=== PATIENT | female | born 1935 | race Caucasian/White ===

== ENCOUNTER 2017-07-20 10:31 | Inpatient (IN) | payer MEDICARE ==
[2017-07-20 11:09] LABS: #Lymphocytes 0.9 thou/uL (1.20-3.40); #Monocytes 0.6 thou/uL (0.11-0.59); #Neutrophils 13.9 thou/uL (1.40-6.50); %Eosinophils 0.1 % (0.0-10.0); %Monocytes 3.7 % (0.0-10.0); %Neutrophils 90.2 % (42.0-75.0); Mean Corpuscular HGB CONC 31.7 g/dL (32.0-36.0); Mean Corpuscular Hemoglobin 30.3 pg (27.0-31.0); Mean Corpuscular Volume 95.6 fl (81.0-99.0); Mean Platelet Volume 7.7 fL (7.4-10.4); Platelet Count 304 thou/uL (130-400); Red Blood Cell (RBC) Count 5.62 mill/uL (4.20-5.40); White Blood Cell (WBC) Count 15.4 thou/uL (4.8-10.8)
[2017-07-20 11:25] LABS: ALT (SGPT) 13 U/L (8-55); AST (SGOT) 29 U/L (5-34); Albumin 4.7 g/dL (3.4-4.8); Alkaline Phosphatase 94 U/L (40-150); Anion Gap 19 mmol/L (10-20); BUN (Urea Nitrogen) 18 mg/dL (9.8-20.1); Bilirubin, Total 1.1 mg/dL (0.2-1.2); Calc. Creatinine Clearance 0 mL/min (70-130); Calcium 10.8 mg/dL (7.8-10.44); Carbon Dioxide 24 mmol/L (23-31); Chloride 99 mmol/L (98-107); Estimated GFR-MDRD 38; Globulin 4.1 g/dL (2.4-3.5); Glucose 176 mg/dL (83-110); Potassium 4.2 mmol/L (3.5-5.1); Protein, Total 8.8 g/dL (6.0-8.3); Sodium 138 mmol/L (136-145)
[2017-07-20] MEDS ORDERED: ISOVUE-370 76%-LOCM 1 ML ONE (12:20)
[2017-07-20] MEDS ORDERED: Ondansetron HCl/PF 4 MG/2 ML Vial ONE (13:10)
--- NOTE | 2017-07-20 13:46 | CT ---
CT ABDOMEN WITH CONTRAST CT PELVIS WITH CONTRAST: Date: 07/20/17 HISTORY: Abdominal pain. Possible obstruction. Nausea, vomiting, and constipation. Symptoms x24 hours. COMPARISON: None. TECHNIQUE: Abdomen and pelvic CT are performed with IV contrast. Enteric contrast was not administered. Coronal reformatted images are submitted for interpretation. FINDINGS: ABDOMEN CT: Atelectasis in the right lower lobe. Heart size normal. No significant pericardial fluid. The descend ing thoracic aorta and abdominal aorta have an overall normal caliber. No periaortic fat stranding. S ymmetric attenuation of psoas muscles. Gallbladder is unremarkable. Intra and extrahepatic portal vei n is patent. Liver, spleen, pancreas, and adrenal glands have appropriate enhancement. Symmetric enhancement of the kidneys. Bilaterally, no obstructive uropathy. 2.5 cm cyst in the left k idney. No gastrohepatic, retrocrural, or periportal lymphadenopathy. No mesenteric mass, lymphadenopathy, free air, or free fluid. Large hiatal hernia with the cardia and proximal to mid body of the stomach extending through the def ect. There is an air fluid level. The herniated stomach, in the posterior mediastinum, measures 13.6 x 7.8 cm. The gastroesophageal junction cannot be assessed on this exam. There are multiple distended fluid-filled loops of small bowel. The transition segment appears to be in the left hemiabdomen and likely involves distal jejunal loops. Mid to distal ileal loops are decompressed. Ileocecal junction is decompressed. Normal caliber appendix. Decompressed colon is identified. No evidence of colonic ob struction. PELVIC CT: Urinary bladder is unremarkable. Surgically absent uterus. No pelvic mass, lymphadenopathy, free air, or free fluid. Sigmoid colon diverticulosis, without evidence of diverticulitis. There is nonspecifi c small amount of free fluid in the pelvis. Scoliotic curvature of the lumbar spine is demonstrated. Previous vertebroplasty change in the lower thoracic spine is noted. IMPRESSION: 1. Large hiatal hernia. 2. High grade small bowel obstruction is suspected. The transition segment appears to be in the left hemiabdomen. Results of study discussed with Dr. Talbert on 07/20/17 at 1259 hours. CODE CR. POS: [facility]
[2017-07-20] MEDS ORDERED: Piperacillin/Tazobactam 4.5 GM, Admixture Fee 1 EACH in Sodium Chloride 0.9% 100 ML IVPB SCH (14:45)
[2017-07-20] MEDS ORDERED: Nystatin 500,000 UNITS/5 ML UDCUP PO SCH ×2 (15:30→21:00)
[2017-07-20] MEDS ORDERED: Piperacillin/Tazobactam 4.5 GM in Sodium Chloride 0.9% 100 ML IVPB SCH ×2 (15:30→20:00)
[2017-07-20 16:33] LABS: Bilirubin Negative (Negative); Blood, Urine Trace (Negative); Clarity CLEAR (Clear); Glucose, Urine (Dipstick) Negative (Negative); Leukocyte Negative (Negative); Nitrite Negative (Negative); Protein, Urine (Dipstick) 30 mg/dL (Neg-Trace); Urobilinogen 0.2 mg/dL (0.2-1.0)
[2017-07-20 16:36] LABS: Bacteria/HPF None Seen HPF (None Seen); Pathc Cast-AUWi Flag 1.62 (0-2.49)
[2017-07-20 16:38] LABS: Specific Gravity, Urine Greater than 1.060 (1.002-1.036)
[2017-07-20 16:50] LABS: Hyaline Casts/LPF 0-3 HYALINE CAST LPF (0-3 Hyaline); Renal Epithelial None Seen HPF (0-3); Transitional Epithelial NONE SEEN HPF (0-3)
[2017-07-20 16:59] LABS: Lactic Acid 1.9 mmol/L (0.5-2.2)
[2017-07-20] MEDS ORDERED: Pantoprazole 40 MG VIAL IVP SCH (17:30)
[2017-07-20] MEDS ORDERED: Lactated Ringer's 1,000 ML IV SCH (17:30)
[2017-07-20] MEDS ORDERED: Chloraseptic Spray 180 ml Bottle PO PRN (17:40)
[2017-07-20] MEDS ORDERED: Ondansetron ODT 4 MG TAB SL PRN (19:12)
[2017-07-20] MEDS ORDERED: Ondansetron HCl/PF 4 MG/2 ML Vial IVP PRN (19:12)
[2017-07-20] MEDS ORDERED: Morphine 5 MG/ML SYRINGE SLOW IVP PRN ×2 (19:27→19:28)
--- NOTE | 2017-07-20 20:19 | CON ---
DATE OF CONSULTATION: 07/20/2017 REQUESTING PHYSICIAN: Dr. Talbert. HISTORY OF PRESENT ILLNESS: This is an 82-year-old woman who presented to Emergency Department with insidious-onset epigastric abdominal pain associated with multiple episodes of nausea and initially nonbilious emesis. Subsequently , patient had bilious emesis. She was evaluated by her primary care physician earlier this morning and was referred to the Emergency Department. Patient reports passing flatus this morning; however, she has not had any bowel movement over the last 2 days. She took some magnesium citrate with hopes of losing bowel movement; however, she was unable to retain this due to multiple bouts of emesis. Patient denies any fevers or chills. She denies any chest pain, dyspnea or syncope. She does, however, recall that over the last several months, she develops shortness of breath after eating. She denies any hematochezia or melena. She denies any unexplained weight loss. PAST MEDICAL HISTORY: She denies any significant past medical history. SURGICAL HISTORY: Pertinent for hysterectomy and hemorrhoidectomy . SOCIAL HISTORY: Patient denies any cigarette smoking or illicit drug abuse; however, she admits to having two shots of [place] nightly. PREHOSPITAL MEDICATION: Includes Advil which she takes occasionally for headaches and pain. ALLERGIES: Patient denies any known drug allergies. FAMILY HISTORY: Noncontributory for this patient's age. REVIEW OF SYSTEMS: Ten-point review of systems is essentially unremarkable except for as stated in past medical history and chief complaint. PHYSICAL EXAMINATION: GENERAL: This reveals an 82-year-old normally-developed woman who is otherwise coherent and interactive and appears stated age. Patient is alert and oriented x3, appears to be in no acute distress at the time of my evaluation. HEENT: Reveals normocephalic and atraumatic. Pupils are equal, round, and reactive to light and accommodation. Extraocular muscles are intact bilaterally. No sclerae icterus is present. HEART: Reveals regular rate and rhythm, no murmurs or gallops auscultated. LUNGS: Clear to auscultation bilaterally. Breathing is regular and unlabored. ABDOMEN: Soft, nontender and nondistended. Bowel sounds in all four quadrants appear normoactive. Liver and spleen are nonpalpable below costal margins. EXTREMITIES: Reveals 2+ radial and pedal pulses bilaterally. No ankle edema is present. NEUROLOGICAL: Examination reveals no focal deficits present. PERTINENT LABORATORY DATA: Today includes CBC with 15,400 white blood cells, hemoglobin 17.0, hematocrit is 53.7, platelet count is 304,000. Metabolic profile: Sodium 138, potassium is 4.2, chloride is 99, bicarbonate is 24, BUN 18, creatinine is 1.34, glucose is 176. Initial lactic acid was 2.7 and on repeat was 1.9. Total bilirubin is 1.1, AST and ALT normal at 29 and 13 respectively. Serum lipase is normal at 12. I have personally reviewed the CT scan of the abdomen and pelvis which reveals a large hiatal hernia with multiple distended loops of small bowel with a transition segment which appears to be in the left upper abdomen. There are scattered air within the colon and rectum nevertheless. IMPRESSION: 1. Acute partial small-bowel obstruction likely secondary to adhesions. 2. Large hiatal hernia. No evidence of strangulation. PLAN: 1. Nasogastric tube was placed by myself returning over 1 liter of bile-tinged succus entericus. Bowel rest will therefore be continued. 2. IV hydration and medical management per primary care service. 3. There is no acute surgical indication for this patient at this time. 4. Surgical intervention will be entertained if the small-bowel obstruction fails to resolve with conservative management. This patient will ultimately need an elective repair of hiatal hernia if no surgical intervention is carried out during this hospitalization. Above findings and plan discussed with the patient and her adult daughter at bedside. They both indicated understanding of information given. I answered their questions. Thank you again, Dr. Talbert for allowing me the opportunity to participate in the care of this patient. ARIANA
--- NOTE | 2017-07-20 20:56 | HP ---
DATE OF ADMISSION: 07/20/2017 ADMITTING PHYSICIAN: Mauro Coyne M.D. HISTORY OF PRESENT ILLNESS: Patient is an [id number]-yeecuv who was seen in my office and was sent imme diately to the emergency room for consideration of bowel obstruction. She reported 24-36 hour histor y of constipation, now not tolerating p.o. intake. She stated she tried multiple enemas to relieve h er constipation and she has now developed some vomiting. She was seen in my office and felt like her abdominal exam was consistent with a bowel obstruction due to distention as well as no bowel sounds being present. She was immediately taken to [facility]. She was seen and evaluated there. CT scan of the abdomen have confirmed a high grade small-bowel obstruction. A surgical consult has been obtained. Patient did not note any other symptoms other than nausea and vomiting associated wit h some cough. No fever has been noted. As noted, she noticed symptoms now for approximately 36 hour s prior to admission. Otherwise, no other medical issues were otherwise noted at this time. She denies any chest pain, walt rtness of breath, fever or productive coughing. She has recently undergone colonoscopy done approximately two years ago, which was essentially normal and negative. ALLERGIES: She has no known allergies. CURRENT MEDICATIONS: She takes butalbital as needed for headache, tramadol as needed for pain, Advil every 6 hours as needed, Flonase nasal spray and montelukast as needed for nasal drainage. PAST MEDICAL HISTORY: Positive for previous headaches. PAST SURGICAL HISTORY: Positive for hysterectomy, cardiac bypass, elbow and rotator cuff surgery, ap pendectomy. SOCIAL/PERSONAL HISTORY: She is single, but she is a . She does not smoke at this time. She d oes not drink alcohol. REVIEW OF SYSTEMS: Gastrointestinal: Positive as above. Genitourinary: Negative. Cardiovascular: Negative. Musculo skeletal: Positive for chronic back pain for which she has had multiple back injections in the past, both thoracic and lumbar. PHYSICAL EXAMINATION: VITAL SIGNS: Blood pressure 134/82, pulse 76, temperature 97.5, O2 sat 97%. GENERAL: She is lying comfortably in bed. She does not wish to move. HEENT: Normocephalic, atraumatic. Sclerae and conjunctivae clear. NECK: Supple, full range of motion, no masses, no bruits auscultated. Thyroid is midline without th yromegaly or thyroid masses. LUNGS: Clear. HEART: Reveals a regular rate and rhythm without murmurs, gallops or rubs. ABDOMEN: Showed multiple areas of abdominal tenderness, without rebound or significant guarding of t he left lower and left upper quadrant. Bowel sounds are negative at this time. EXTREMITIES: No clubbing, edema or cyanosis noted at this time. LABORATORY: Her white blood count is 15,000, hemoglobin 17.0, hematocrit 53.7, platelet count 304,00 0. Chemistry: Sodium 138, potassium 4.2, chloride 99, CO2 of 24, BUN 18, creatinine 1.34. Urinalys is today showed 11-20 WBC per high power field. IMPRESSION: 1. This is an 82-year-old female who has a sudden onset of small-bowel obstruction of unknown etiolo gy. 2. Possible urinary tract infection. PLAN: The patient will be admitted. Surgical consult will be obtained. If possible, we will probab ly start her on Rocephin for urinary tract infection. Further management per Surgery.
[2017-07-20 22:09] VITALS: BMI 22.4
[2017-07-20] MEDS ORDERED: Lorazepam 2 MG/ML VIAL SLOW IVP SCH (22:45)
[2017-07-20] MEDS: Piperacillin/Tazobactam 4.5 GM in Sodium Chloride 0.9% 100 ML IVPB SCH (22:50)
[2017-07-20] MEDS ORDERED: Lorazepam 2 MG/ML VIAL SLOW IVP PRN (23:30)
[2017-07-21] MEDS: Piperacillin/Tazobactam 4.5 GM in Sodium Chloride 0.9% 100 ML IVPB SCH ×4 (03:45→21:59)
[2017-07-21 04:50] LABS: Anion Gap 11 mmol/L (10-20); BUN (Urea Nitrogen) 19 mg/dL (9.8-20.1); Calc. Creatinine Clearance 44 mL/min (70-130); Calcium 9.3 mg/dL (7.8-10.44); Carbon Dioxide 34 mmol/L (23-31); Chloride 101 mmol/L (98-107); Estimated GFR-MDRD 58; Glucose 94 mg/dL (83-110); Potassium 3.4 mmol/L (3.5-5.1); Sodium 143 mmol/L (136-145)
[2017-07-21 05:00] LABS: Band 4 % (5-11); Lymphocytes 7 % (21-51); MDiff Complete? YES; Mean Corpuscular HGB CONC 32.1 g/dL (32.0-36.0); Mean Corpuscular Hemoglobin 31.1 pg (27.0-31.0); Mean Corpuscular Volume 96.7 fl (81.0-99.0); Mean Platelet Volume 7.9 fL (7.4-10.4); Monocytes 4 % (0-10); Neutrophil 85 % (42-75); PLT Morphology Comment Appears Adequate; Platelet Count 249 thou/uL (130-400); RBC Distribution Width 12.2 % (11.5-14.5); Red Blood Cell (RBC) Count 4.52 mill/uL (4.20-5.40); White Blood Cell (WBC) Count 11.9 thou/uL (4.8-10.8)
--- NOTE | 2017-07-21 07:46 | PRG ---
DATE OF SERVICE: 07/21/2017 Ms. Blankenship is resting comfortably in bed. She has a nasogastric tube in place. PHYSICAL EXAMINATION: VITAL SIGNS: BP 153/98, temperature 98.6. LUNGS: Bilateral breath sounds. HEART: Reveals no murmurs. ABDOMEN: Softer from yesterday. Bowel sounds are still not present. LABORATORY: Hemoglobin is 14.3, hematocrit 43.7, white count 11.9. Sodium 143, potassium 3.4, chlor pradeep 101, CO2 34, creatinine 0.93. IMPRESSION: Bowel obstruction. PLAN: Per surgical recommendations, probably further evaluation with Gastrografin injection of NG tu be. I have discussed the findings with the patient and her daughter.
[2017-07-21] MEDS ORDERED: MD-Gastroview 120 ML BOT ONE (12:38)
--- NOTE | 2017-07-21 12:54 | PRG ---
DATE OF SERVICE: 07/21/2017 SUBJECTIVE: Ms. Blankenship is awake and alert. She reports no abdominal pain at this time. Nasogastric tube, which was placed yesterday, has returned over 2000 mL of bile-colored succus entericus. The pa tient denies any bowel movement or flatus. She has, otherwise, remained hemodynamically stable since admission. OBJECTIVE: VITAL SIGNS: Currently includes blood pressure 120/79, pulse 73, respiratory rate 14, maximum temper ature since admission is 99.3 degrees Fahrenheit and oxygen saturation is 93% on room air. HEENT EXAMINATION: Reveals normocephalic and atraumatic. HEART: Reveals regular rate and rhythm. No murmurs or gallops auscultated. CHEST: Clear to auscultation bilaterally. Breathing is regular and unlabored. ABDOMEN: Soft and moderately distended. She has mild tenderness in the left upper quadrant. No rajat ss rebound tenderness present. Liver and spleen nonpalpable below costal margins. EXTREMITIES: Reveal 2+ radial and pedal pulses bilaterally. No ankle edema is present. NEUROLOGICAL EXAMINATION: Reveals no focal deficits present. PERTINENT LABORATORY FINDINGS: Today includes CBC with decreasing white blood cell count at 11,900, hemoglobin and hematocrit stable at 14.0 and 43.7 respectively. Platelet count is 249,000. Metaboli c profile today, sodium 143, potassium is 3.4, chloride is 101, bicarbonate 34, BUN is 19, creatinine is 0.93, glucose is 94. IMPRESSION: 1. Acute small-bowel obstruction, no clinical evidence of peritonitis. 2. Large hiatal hernia. 3. Acute hypokalemia. PLAN: We will initiate a small bowel follow-through to better define the anatomy and the position of the obstructive small bowel segment. There is no acute surgical indication for this patient at this time. If conservative management fails to resolve this problem, patient will undergo exploratory la parotomy, at which time the hiatal hernia with also be repaired.
[2017-07-21] MEDS ORDERED: Ondansetron HCl/PF 4 MG/2 ML Vial IVP PRN (13:31)
[2017-07-21] MEDS ORDERED: diphenhydrAMINE 50 MG/ML VIAL IVP ONE (17:13)
--- NOTE | 2017-07-21 19:02 | RAD ---
SMALL BOWEL FOLLOW THROUGH: 07/21/17 HISTORY: Small bowel obstruction. COMPARISON: A 07/20/17 CT examination. Gastrografin was given. The films were obtained at 6 hours. These show no passage of the gastrografin into the colon at 6 hours compatible with a high grade obstruction. There is a large hiatal hernia n oted. IMPRESSION: High grade small bowel obstruction. Exam was terminated by referring physician. POS: [facility]
[2017-07-21] MEDS ORDERED: diphenhydrAMINE 50 MG/ML VIAL IVP SCH (21:00)
--- NOTE | 2017-07-21 23:11 | PRG ---
DATE OF SERVICE: 07/21/2017 SUBJECTIVE: This is an 82-year-old female, who has a surgical consult for small-bowel obstruction. The patient has been on bowel rest with an NG tube. She had a small bowel follow-through earlier tochelly tavera, which indicated high-grade small-bowel obstruction. There are plans for operative intervention t o this tomorrow morning per Dr. Lemus. Upon my evaluation, the patient localized no complaints. OBJECTIVE: VITAL SIGNS: Reviewed and stable. GENERAL: The patient is resting in bed in no acute distress. NG tube is in place. RESPIRATIONS: Breathing was nonlabored. ABDOMEN: Soft without signs of guarding, peritonitis, or rigidity. ASSESSMENT: Small-bowel obstruction. PLAN: Plan for OR in a.m. The patient is n.p.o. Otherwise, continue care as ordered. Continue to monitor. A.m. labs.
[2017-07-22] MEDS: Piperacillin/Tazobactam 4.5 GM in Sodium Chloride 0.9% 100 ML IVPB SCH ×4 (03:31→22:28)
[2017-07-22 06:21] LABS: #Lymphocytes 1.4 thou/uL (1.20-3.40); #Monocytes 0.8 thou/uL (0.11-0.59); #Neutrophils 9.4 thou/uL (1.40-6.50); %Eosinophils 0.3 % (0.0-10.0); %Lymphocytes 11.9 % (21.0-51.0); %Monocytes 6.7 % (0.0-10.0); %Neutrophils 81.1 % (42.0-75.0); Hemoglobin 15.8 g/dL (12.0-16.0); Mean Corpuscular HGB CONC 32.4 g/dL (32.0-36.0); Mean Corpuscular Hemoglobin 31.3 pg (27.0-31.0); Mean Corpuscular Volume 96.5 fl (81.0-99.0); Mean Platelet Volume 7.9 fL (7.4-10.4); Platelet Count 255 thou/uL (130-400); RBC Distribution Width 12.1 % (11.5-14.5); Red Blood Cell (RBC) Count 5.06 mill/uL (4.20-5.40); White Blood Cell (WBC) Count 11.6 thou/uL (4.8-10.8)
[2017-07-22 06:27] LABS: Anion Gap 21 mmol/L (10-20); BUN (Urea Nitrogen) 32 mg/dL (9.8-20.1); Calc. Creatinine Clearance 36 mL/min (70-130); Calcium 10.2 mg/dL (7.8-10.44); Carbon Dioxide 34 mmol/L (23-31); Chloride 98 mmol/L (98-107); Estimated GFR-MDRD 46; Glucose 77 mg/dL (83-110); Magnesium 2.3 mg/dL (1.6-2.6); Phosphorus 5.5 mg/dL (2.3-4.7); Potassium 3.3 mmol/L (3.5-5.1); Sodium 150 mmol/L (136-145)
[2017-07-22] MEDS ORDERED: Sodium Chloride 0.9% 1,000 ML IV SCH (07:15)
--- NOTE | 2017-07-22 07:51 | PRG ---
DATE OF SERVICE: 07/22/2017 Ms. Blankenship is doing well. Her small bowel follow through shows complete high grade obstruction of the small bowel. She is going to the OR at this time. PHYSICAL EXAMINATION: VITAL SIGNS: BP 136/81, temperature 98.4. LABORATORY DATA: White blood count 11.6, hemoglobin 15.8, hematocrit 48.8. Chemistries: Potassium is 3.3, creatinine 1.14. IMPRESSION: Small-bowel obstruction. PLAN: Surgical exploration today.
[2017-07-22] MEDS ORDERED: Fentanyl 100 MCG/2 ML VIAL ONE ×3 (08:34→13:17)
[2017-07-22] MEDS ORDERED: Midazolam HCl 2 mg/2 ml Vial ONE (08:34)
[2017-07-22] MEDS ORDERED: diphenhydrAMINE 50 MG/ML VIAL IM PRN (12:33)
[2017-07-22] MEDS ORDERED: HYDROmorphone 10 mg/100 ml CADD IVPB PRN ×2 (12:33→15:11)
[2017-07-22] MEDS ORDERED: Zolpidem Tartrate 5 MG TAB PO PRN (12:33)
[2017-07-22] MEDS ORDERED: Naloxone HCl 0.4 mg/ml Vial IV PRN (12:33)
[2017-07-22] MEDS ORDERED: diphenhydrAMINE 25 MG CAP PO PRN (12:33)
[2017-07-22] MEDS ORDERED: diphenhydrAMINE 50 MG/ML VIAL IVP PRN (12:33)
[2017-07-22] MEDS ORDERED: Promethazine HCl 25 MG/ML VIAL IM PRN (12:33)
[2017-07-22] MEDS ORDERED: Communication Order-Pharmacy FS SCH (12:45)
--- NOTE | 2017-07-22 12:58 | OP ---
DATE OF OPERATION: 07/22/2017 PREOPERATIVE DIAGNOSES: 1. Acute small-bowel obstruction. 2. Large hiatal hernia. POSTOPERATIVE DIAGNOSES: 1. Acute small bowel obstruction secondary to adhesions. 2. Large hiatal hernia. SURGERY PERFORMED: 1. Exploratory laparotomy. 2. Adhesiolysis. 3. Repair of large hiatal hernia. 4. Gastropexy. 5. Placement of feeding nasojejunal tube. SURGEON: Rodrick Lemus D.O. COMPUTER NETWORK SPECIALIST. Roddy Rock PA-C. ANESTHESIA: General endotracheal. ESTIMATED BLOOD LOSS: 50 mL. FLUIDS GIVEN: 1400 mL crystalloids. SPONGE AND INSTRUMENT COUNT: Certified as correct x2. COMPLICATIONS: None apparent at time of operation. INDICATIONS FOR PROCEDURE: An 82-year-old woman presented with persistent epigastric abdom inal pain associated with multiple episodes of initially nonbilious but progressively bilious emesis of large volume. A diagnosis of acute small-bowel obstruction was rendered, incidental finding of a large hiatal herni a was also noted. Conservative management was initiated including bowel rest with nasogastric tube d ecompression. The patient continued to have large volume nasogastric tube output over 2000 mL of bilious succus ent ericus daily. Small bowel follow through was significantly suggestive of a small-bowel obstruction with transition zone in the left upper quadrant. The patient is therefore brought to the operating room for explorat ion. Findings are consistent with a large hiatal hernia, two-thirds of the stomach is in the thoracic cavi ty. Multiple loops of distended small bowel was encountered and there is a transition zone in the le ft upper quadrant with 1 adhesive band. Additionally, several segments of ileum were trapped in dens e adhesions in the pelvis and previous hysterectomy incisional site. DESCRIPTION OF PROCEDURE: Informed consent obtained from the patient who was brought to the operatin g room and placed in supine position. Following general anesthesia, a Hinojosa catheter was inserted an d placed to bedside drain. Previous nasogastric tube was placed to wall suction. Abdomen is sterile ly prepped and draped in the usual fashion. A midline incision was made using #10 scalpel. The inci kim is carried through subcutaneous tissues maintaining hemostasis using thermocautery. Fascia was incised in midline exposing the peritoneum beneath which was grasped x2 with hemostats. The peritone al cavity was sharply entered using Metzenbaum scissors. The incision was then extended superiorly a nd posteriorly. Bookwalter retractor was then put in place to gain exposure. Small bowel was run fr om the ligament of Treitz down to mid jejunum which was trapped in a closed loop fashion by an adhesi ve band. The band was excised. Small bowel was then run, remainder of the small bowel noted. The d istal ileum was markedly decompressed. There was a single loop of distal ileum that were densely adh ered to the pelvis. The hiatal hernia was then attended to. We were able to reduce the stomach into the peritoneal cavity noting a large defect at the esophageal hiatus. We then decided to proceed with repair of the hiatal hernia. To achieve this, once omentum and adventitia tissues were reduced from the esophageal hiatus the esophagus was encircled at the GE junction using an umbilical tape. The right and left crura of the diaphragm were isolated using Allis clamps. The crura of the diaphra gm were then plicated using interrupted sutures of 2-0 Prolene sutures. We decided not to perform fu ndoplication of Geremias type due to not knowing about the patient's ability to swallow with no preoper ative manometry performed. I decided, therefore, to perform a gastropexy to prevent slipping of the stomach back into the chest. To achieve this, a 20-Paraguayan gastrostomy tube was chosen. A stab incision was made in the left upp er quadrant using a #10 scalpel. A tonsil clamp was then used to introduce the 20-Paraguayan gastrostomy tube into the peritoneal cavity. A pursestring suture of 3-0 silk was placed in the anterior aspect of the gastric fundus. The gastrotomy was made in the center of this pursestring suture. The gastr ostomy tube was then introduced into the gastric lumen without resistance. The balloon was inflated to 10 mL of sterile water. The pursestring suture was then cinched into barbie ce. The anterior aspect of the stomach was sutured to the intraabdominal wall using 3-0 silk suture at 3 points. I then turned my attention to the remainder of the small bowel where meticulous dissect ion was achieved, taking down adhesions and care taken to avoid enterotomies. Once adhesiolysis was completed, I ran the small bowel again this time from the terminal ileum down t o the ligament of Treitz, finding no injuries to bowel or remnant adhesions. The large intestine was inspected from the cecum through the ascending, transverse, descending, sigmoid colon and rectum. I did not palpate it any abnormal masses. A normal appendix is noted in the usual anatomic location. Gallbladder is also palpated in the usual anatomic location devoid of stones. At this juncture, a f eeding nasojejunal tube was introduced by Anesthesia, tip of which was palpated by myself within the gastric lumen. I manipulated the tip of this catheter into proximal small bowel without resistance. Finding no other pathology, exploration was terminated. All sponges and instruments were removed and accounted for. I placed one large piece of Seprafilm in the deep pelvis prior to returning the smal l bowel to normal anatomic location. A second piece of Seprafilm was then placed over the remainder of the small bowel. Omentum was drawn over the remainder of the viscera. Fascia is approximated in the midline using a running stitch of #1 single stranded PDS. Subcutaneous tissues were irrigated cl ear with saline solution perfecting hemostasis using thermocautery. Skin incision was closed using 4 -0 Monocryl suture in subcuticular fashion. Dermabond was applied over the incision. The patient to lerated the operation without any apparent complication and was returned to recovery room in satisfac tory condition.
[2017-07-22] MEDS ORDERED: hydrALAZINE 20 MG/ML VIAL SLOW IVP PRN (13:02)
--- NOTE | 2017-07-22 13:22 | RAD ---
SINGLE VIEW OF THE CHEST: COMPARISON: None. HISTORY: Hiatal hernia repair. FINDINGS: A single view of the chest shows a normal-size cardiomediastinal silhouette. A Dobbhoff tube courses off the inferior aspect of the film and is likely within the duodenum. Linear opacities in the lung bases likely represent atelectasis. No obvious pleural effusion is seen. IMPRESSION: Bibasilar atelectasis. POS: [facility]
--- NOTE | 2017-07-22 13:37 | RAD ---
KUB: COMPARISON: None. HISTORY: Feeding tube placement: FINDINGS: A SINGLE VIEW OF THE ABDOMEN SHOWS A NONSPECIFIC, NONOBSTRUCTED BOWEL GAS PATTERN. There is a Dobbho ff tube which has the usual course of the stomach and duodenum. However, the tip is seen in the righ t upper quadrant of the abdomen which appears to course immediately inferiorly from the 2nd portion o f the duodenum. The location of the Dobbhoff tube is uncertain. There appears to be a 2nd tube proj ecting over the left abdomen which may represent a gastrostomy tube. IMPRESSION: Uncertain position of the Dobbhoff tube. POS: [facility]
[2017-07-22] MEDS ORDERED: D5 1/2 NS w/20 mEq KCL 1,000 ML ONE (13:53)
--- NOTE | 2017-07-22 14:37 | RAD ---
SINGLE VIEW OF THE ABDOMEN: COMPARISON: 07/22/17 at 1:00 p.m. FINDINGS: A single view of the abdomen shows a Dobbhoff tube. Contrast is seen in the Dobbhoff tube. The tip of the Dobbhoff tube is within the small bowel. There is a nonobstructed bowel gas pattern. IMPRESSION: Dobbhoff tube located within small bowel. POS: [facility]
[2017-07-22] MEDS ORDERED: Bupivacaine HCl 0.5%/Epinephrine 1:200,000/PF 30 ml Vial ONE (14:38)
[2017-07-22] MEDS ORDERED: Propofol 200 MG/20 ML VIAL ONE (15:22)
[2017-07-22] MEDS ORDERED: Succinylcholine Chloride 20 MG/ML 10 ml SYRINGE FS ONE (15:22)
[2017-07-22] MEDS ORDERED: Glycopyrrolate 0.2 MG/ML 5 ML SYRINGE ONE (15:22)
[2017-07-22] MEDS ORDERED: PHENYLEPHRINE-NS 100 MCG/ML 10 ML SYRINGE ONE (15:22)
[2017-07-22] MEDS ORDERED: Metoprolol Tartrate 5 MG/5 ML VIAL ONE (15:22)
[2017-07-22] MEDS ORDERED: Lidocaine 1% PF 5 ML VIAL ONE (15:22)
[2017-07-22] MEDS ORDERED: Ondansetron HCl/PF 4 MG/2 ML Vial ONE (15:22)
[2017-07-22] MEDS: D5 1/2 NS w/20 mEq KCL 1,000 ML IV SCH (16:51)
[2017-07-22] MEDS: Acetaminophen 1,000 MG in Premix Bag 1 BAG IVPB SCH (17:37)
--- NOTE | 2017-07-22 22:55 | PRG ---
DATE OF SERVICE: 07/22/2017 SUBJECTIVE: Amy Blankenship is an 82-year-old female, postop day 0 status post exploratory laparotomy, lysis of adhesions, hiatal hernia repair, gastropexy for small bowel obstruction and hiatal hernia. The patient has been returned to surgical floor postoperatively. She has remained hemodynamically st able this afternoon. Upon my evaluation, she vocalized no complaints. OBJECTIVE: VITAL SIGNS: Reviewed and stable. GENERAL: The patient is resting in bed in no acute distress. Dobhoff appears to be in place with tr iple feeds. ABDOMEN: Soft without significant tenderness. No signs of peritonitis, guarding, or rigidity. NEUROLOGIC: No focal deficit noted. RESPIRATORY: Breathing is nonlabored. ASSESSMENT AND PLAN: As documented in daily progress note. Continue care as ordered. Continue to m onitor. Await bowel function return. Pain control via LASER BEAM TRIM OPERATOR pump.
[2017-07-23] MEDS: Acetaminophen 1,000 MG in Premix Bag 1 BAG IVPB SCH ×4 (01:02→17:48)
[2017-07-23] MEDS: D5 1/2 NS w/20 mEq KCL 1,000 ML IV SCH ×3 (01:04→21:46)
[2017-07-23] MEDS: Piperacillin/Tazobactam 4.5 GM in Sodium Chloride 0.9% 100 ML IVPB SCH ×4 (05:09→21:18)
[2017-07-23 06:19] LABS: Eosinophils 2 % (0-10); Lymphocytes 17 % (21-51); MDiff Complete? YES; Mean Corpuscular HGB CONC 32.6 g/dL (32.0-36.0); Mean Corpuscular Hemoglobin 32.2 pg (27.0-31.0); Mean Corpuscular Volume 98.6 fl (81.0-99.0); Mean Platelet Volume 8.5 fL (7.4-10.4); Monocytes 6 % (0-10); Neutrophil 75 % (42-75); Platelet Count 213 thou/uL (130-400); RBC Distribution Width 12.1 % (11.5-14.5); Red Blood Cell (RBC) Count 4.36 mill/uL (4.20-5.40); White Blood Cell (WBC) Count 8.7 thou/uL (4.8-10.8)
[2017-07-23 06:59] LABS: Anion Gap 13 mmol/L (10-20); BUN (Urea Nitrogen) 29 mg/dL (9.8-20.1); Calc. Creatinine Clearance 49 mL/min (70-130); Calcium 7.6 mg/dL (7.8-10.44); Carbon Dioxide 29 mmol/L (23-31); Chloride 108 mmol/L (98-107); Estimated GFR-MDRD 66; Glucose 116 mg/dL (83-110); Magnesium 2.1 mg/dL (1.6-2.6); Potassium 3.6 mmol/L (3.5-5.1); Sodium 146 mmol/L (136-145)
[2017-07-23] MEDS: Melatonin 3 MG TAB PO PRN (21:46)
--- NOTE | 2017-07-24 00:50 | PRG ---
DATE OF SERVICE: 07/23/2017 SUBJECTIVE: This is an 82-year-old female postop day #1 status post exploratory laparotomy, lysis of adhesions and hiatal hernia repair. Upon my evaluation, the patient vocalized no complaint. She de nies any flatus or bowel movement at this time. Dobhoff is in place with tube feeds, running. OBJECTIVE: VITAL SIGNS: Reviewed and stable. GENERAL: The patient is resting in bed in no acute distress. Currently working on incentive spirome try. Breathing is nonlabored. Dobhoff is in place. ABDOMEN: Soft with very mild generalized tenderness. There are no signs of peritonitis, guarding or rigidity. Bowel sounds are hypoactive. ASSESSMENT AND PLAN: As documented in daily progress note. Continue care as ordered. Continue to m onitor. Await bowel function returned.
[2017-07-24] MEDS: Piperacillin/Tazobactam 4.5 GM in Sodium Chloride 0.9% 100 ML IVPB SCH ×2 (04:03→10:08)
[2017-07-24] MEDS: D5 1/2 NS w/20 mEq KCL 1,000 ML IV SCH ×3 (08:03→20:11)
[2017-07-24] MEDS ORDERED: traMADol HCl 50 MG TAB PO PRN (09:48)
[2017-07-24] MEDS: traMADol HCl 50 MG TAB PO SCH ×3 (10:14→22:07)
--- NOTE | 2017-07-24 11:28 | PRG ---
DATE OF SERVICE: 07/24/2017 SUBJECTIVE: Ms. Blankenship is awake and alert. She reports adequate pain control. She denies any flatus or bowel movement. Gastrostomy tube returns minimum bile-tinged drainage. She is having adequate urinary function. OBJECTIVE: VITAL SIGNS: Today includes blood pressure 125/81, pulse 87, respiration rate 16, maximum temperatur e in the last 24 hours is 98.4 degrees Fahrenheit, oxygen saturation is 92% on room air. HEENT: Reveals normocephalic and atraumatic. She has no sclerae edema or jugular venous distention noted. HEART: Reveals regular rate and rhythm, no murmurs or gallops auscultated. CHEST: Lungs clear to auscultation bilaterally. Breathing is regular and unlabored. ABDOMEN: Soft and nondistended. Incision remains intact, clean, and dry. She has no gross rebound tenderness on examination. Bowel sounds in all 4 quadrants appear normoactive. She tolerates trop hic tube feeds at 10 mL per hour. EXTREMITIES: Reveals 2+ radial and pedal pulses bilaterally. No ankle edema is present. NEUROLOGIC: Reveals no focal deficits present. IMPRESSION: Postoperative day #2 status post exploratory laparotomy and repair of large hiatal herni a. The patient is hemodynamically stable. PLAN: 1. Increase activity. 2. The patient controlled analgesia will be discontinued. 3. Oral analgesics will be initiated. 4. We will increase the trophic tube feeds to 20 mL per hour and monitor the patient for return of b owel function. The above findings and plan discussed with the patient and her daughter at bedside. They both indica patricia understanding of information given. I answered her questions.
[2017-07-24] MEDS: Acetaminophen 500 MG TAB PO PRN (11:37)
--- NOTE | 2017-07-24 12:52 | PRG ---
DATE OF SERVICE: 07/24/2017 Ms. Blankenship is awake and alert. She states she is feeling good. PHYSICAL EXAMINATION: VITAL SIGNS: Her pulse is 87, respirations 16, O2 sats 98%. LUNGS: Reveal bilateral breath sounds. HEART: Reveals no murmur. IMPRESSION: Status post repair of small-bowel obstruction and hiatal hernia. PLAN: The patient is still on tube feedings. Further recommendations per Surgery. Medically she is stable at this time.
[2017-07-24] MEDS: Melatonin 3 MG TAB PO PRN (20:11)
--- NOTE | 2017-07-24 21:16 | PRG ---
DATE OF SERVICE: 07/24/2017. SUBJECTIVE: Amy Blankenship is an 82-year-old female status post exploratory laparotomy, lysis of adhes ions, and hiatal hernia repair. The patient still has not had return of bowel function and denies an y flatus or bowel movement. States pain is controlled and improved from yesterday. Vocalized no com plaint. OBJECTIVE: VITAL SIGNS: Reviewed and stable. GENERAL: The patient is resting in bed in no acute distress. LUNGS: Breathing is nonlabored. ABDOMEN: Soft and mildly distended. Bowel sounds are hypoactive. No sign of peritonitis, guarding, or rigidity. ASSESSMENT AND PLAN: As documented in daily progress note. Continue care as ordered. Continue to m onitor. Await return of bowel function.
[2017-07-25] MEDS: traMADol HCl 50 MG TAB PO SCH ×3 (03:22→21:36)
[2017-07-25] MEDS: Acetaminophen 500 MG TAB PO PRN (03:23)
[2017-07-25] MEDS: Pantoprazole 40 MG VIAL IVP SCH (08:34)
[2017-07-25] MEDS: D5 1/2 NS w/20 mEq KCL 1,000 ML IV SCH (08:35)
[2017-07-25 15:36] LABS: Anion Gap 10 mmol/L (10-20); BUN (Urea Nitrogen) 11 mg/dL (9.8-20.1); Calc. Creatinine Clearance 80 mL/min (70-130); Calcium 8.6 mg/dL (7.8-10.44); Carbon Dioxide 23 mmol/L (23-31); Chloride 108 mmol/L (98-107); Estimated GFR-MDRD Greater than 90; Glucose 88 mg/dL (83-110); Magnesium 1.6 mg/dL (1.6-2.6); Potassium 3.6 mmol/L (3.5-5.1); Sodium 137 mmol/L (136-145)
[2017-07-25 15:41] LABS: Phosphorus 1.8 mg/dL (2.3-4.7)
--- NOTE | 2017-07-25 17:08 | PRG ---
DATE OF SERVICE: 07/25/2017 SUBJECTIVE: The patient is postoperative day #3 status post exploratory laparotomy and repair of lar ge hiatal hernia. The patient overnight has not had any issues. This morning, has stated that she h as been passing gas. She denies any bloating or discomfort, or nausea. PHYSICAL EXAMINATION: VITAL SIGNS: Temperature is 98.1, heart rate 75, blood pressure 151/90, respirations 12, oxygen satu ration 93% on room air. GENERAL: The patient is resting comfortably in bed. She is awake, alert, and oriented x3. HEENT: Unremarkable. HEART: Has regular rate and rhythm. ABDOMEN: Soft, flat, nontender with active bowel sounds. LUNGS: Clear to auscultation bilaterally. EXTREMITIES: Neurovascularly intact x4. LABORATORY DATA AND IMAGING DATA: Labs are pending at this time. There are no radiographs to review this morning. ASSESSMENT AND PLAN: Status post exploratory laparotomy and hiatal hernia repair. Continue supporti ve care. We will discontinue her Dobbhoff tube and start a clear liquid diet. Continue to monitor t he patient and we will advance her diet as tolerated, most likely tomorrow. The evaluation examinati on was done with Dr. Lmeus this morning during rounds.
[2017-07-25] MEDS ORDERED: Potassium Phosphate 30 MMOL in Sodium Chloride 0.9% 500 ML IVPB SCH (18:00)
[2017-07-25] MEDS: Melatonin 3 MG TAB PO PRN (21:38)
--- NOTE | 2017-07-25 22:58 | PRG ---
DATE OF SERVICE: 07/25/2017 SUBJECTIVE: Amy Blankenship is an 82-year-old female status post exploratory laparotomy, lysis of adhes ions, and hiatal hernia repair, and she is postop day #3. The patient started passing gas earlier to day. She was started on a clear liquid diet. Upon my evaluation, the patient is resting in bed, in no acute distress, and vocalized no complaints. OBJECTIVE: VITAL SIGNS: Reviewed. The patient is mildly hypertensive, otherwise stable. GENERAL: Resting in bed, in no acute distress. RESPIRATORY: Breathing is nonlabored. ABDOMEN: Soft, mildly distended with very mild generalized tenderness. No guarding or rigidity. ASSESSMENT AND PLAN: As documented in daily progress note. Suspect hypertension may be related to p ain as the patient has been recently switched from a [employer] to p.o. pain medications. We will continue to monitor. Otherwise care as ordered.
[2017-07-26] MEDS: Ibuprofen 600 MG TAB PO PRN ×2 (00:55→21:08)
[2017-07-26] MEDS: traMADol HCl 50 MG TAB PO SCH ×3 (06:26→21:09)
[2017-07-26 06:34] LABS: Anion Gap 11 mmol/L (10-20); BUN (Urea Nitrogen) 8 mg/dL (9.8-20.1); Calc. Creatinine Clearance 71 mL/min (70-130); Calcium 8.5 mg/dL (7.8-10.44); Carbon Dioxide 24 mmol/L (23-31); Chloride 108 mmol/L (98-107); Estimated GFR-MDRD Greater than 90; Glucose 83 mg/dL (83-110); Magnesium 1.6 mg/dL (1.6-2.6); Phosphorus 3.1 mg/dL (2.3-4.7); Potassium 3.7 mmol/L (3.5-5.1); Sodium 139 mmol/L (136-145)
[2017-07-26] MEDS: Magnesium Sulfate 4 GM in Sodium Chloride 0.9% 250 ML 250 ML IVPB SCH ×2 (09:02→10:01)
[2017-07-26] MEDS: Pantoprazole 40 MG VIAL IVP SCH (09:03)
[2017-07-26] MEDS ORDERED: Furosemide 20 MG/2 ML VIAL SLOW IVP SCH (10:45)
--- NOTE | 2017-07-26 12:36 | PRG ---
DATE OF SERVICE: 07/26/2017 SUBJECTIVE: Ms. Blankenship is awake and alert. She just came back from walking the hallways. She report s adequate pain control. She is tolerating general diet and having normal bowel movements. She lou es any dyspnea or syncope. PHYSICAL EXAMINATION: VITAL SIGNS: Today includes blood pressure 159/98, pulse 78, respiratory rate 16, temperature is 98. 7 degrees Fahrenheit, and oxygen saturation is 93% on room air. HEENT: Reveals normocephalic and atraumatic. She has no sclerae edema or icterus present. No jugul ar venous distention is noted. HEART: Reveals regular rate and rhythm, no murmurs or gallops auscultated. LUNGS: Clear to auscultation bilaterally. Breathing is regular and unlabored. ABDOMEN: Soft, nondistended. The incision remains intact, clean, dry, no erythema or any evidence o f infection. She has no peritoneal signs on examination. NEUROLOGIC: Reveals no focal deficits present. PERTINENT LABORATORY FINDINGS: Includes metabolic profile: Sodium is 139, potassium is 3.7, chlorid e is 108, bicarbonate is 24, BUN is 8, creatinine is 0.57, glucose is 83, phosphorus is 3.1, and magn esium is 1.6. IMPRESSION: 1. Postoperative day #4, status post exploratory laparotomy and repair of hiatal hernia. 2. Acute hypokalemia. 3. Acute hypomagnesemia. PLAN: 1. Correct abnormal electrolytes. 2. The patient is somewhat unsteady on her gait requires assistance with ambulation, although she munson s good motivation. 3. We will ask PMNR to evaluate the patient for possible inpatient rehabilitation.
[2017-07-26] MEDS: Acetaminophen 500 MG TAB PO PRN (21:08)
[2017-07-26] MEDS: Melatonin 3 MG TAB PO PRN (21:10)
--- NOTE | 2017-07-26 22:27 | PRG ---
DATE OF SERVICE: 07/26/2017 SUBJECTIVE: This is an 82-year-old female status post exploratory laparotomy, lysis of adhesions, an d hiatal hernia repair. The patient just returned from walking in the hart. She is tolerating her d iet. Pain is controlled via p.o. analgesics. Upon my evaluation, she localized no complaint. OBJECTIVE: VITAL SIGNS: Reviewed and stable. The patient is on room air. Resting in bed in no acute distress. Breathing is nonlabored. ASSESSMENT AND PLAN: As documented in daily progress note. Continue care as ordered. Continue to m onitor.
[2017-07-27] MEDS: traMADol HCl 50 MG TAB PO SCH ×2 (06:13→13:39)
[2017-07-27 06:28] LABS: Anion Gap 11 mmol/L (10-20); BUN (Urea Nitrogen) 11 mg/dL (9.8-20.1); Calc. Creatinine Clearance 75 mL/min (70-130); Calcium 8.4 mg/dL (7.8-10.44); Carbon Dioxide 23 mmol/L (23-31); Chloride 106 mmol/L (98-107); Estimated GFR-MDRD Greater than 90; Glucose 102 mg/dL (83-110); Magnesium 1.6 mg/dL (1.6-2.6); Phosphorus 2.7 mg/dL (2.3-4.7); Potassium 3.4 mmol/L (3.5-5.1); Sodium 137 mmol/L (136-145)
[2017-07-27] MEDS ORDERED: Magnesium 2 GM/NS 0.9% 100 ML 2 GM in Premix Bag 1 BAG IVPB SCH (07:00)
[2017-07-27] MEDS ORDERED: Potassium Chloride 40 MEQ in Sodium Chloride 0.9% 250 ML 250 ML IVPB SCH (07:00)
--- NOTE | 2017-07-27 08:11 | PRG ---
DATE OF SERVICE: 07/27/2017 Ms. Blankenship is status post exploratory laparotomy, lysis of adhesions, status post small-bowel obstruct ion and repair of hiatal hernia. She is now tolerating p.o. fairly well. PHYSICAL EXAMINATION: LUNGS: Clear. HEART: Reveals no murmur. LABORATORY: Sodium 137, potassium 3.4, BUN 11, creatinine 0.4. She is interested in going to rehab. IMPRESSION: Status post small-bowel obstruction repair as well as hiatal hernia repair. PLAN: Excellent progress. Consider rehab.
[2017-07-27 12:16] VITALS: BP 140/81; TEMP 98.6
[2017-07-27] MEDS ORDERED: Potassium Chloride 20 MEQ TAB PO SCH (14:15)
--- NOTE | 2017-07-27 23:58 | DIS ---
DATE OF ADMISSION: 07/20/2017 DATE OF DISCHARGE: 07/27/2017 ADMITTING PHYSICIAN: Mauro Coyne M.D. DISCHARGING PHYSICIAN: Mauro Dominguez M.D. CHIEF COMPLAINT: Concern for small-bowel obstruction. HISTORY OF PRESENT ILLNESS: The patient is an 82-year-old female who reported to the ED on the advic e of her primary care physician on 07/20/2017 for suspected small-bowel obstruction. She had at that time been unable to take p.o. intake and had had multiple bouts of vomiting. She had a CT scan of t he abdomen that confirmed a high grade small-bowel obstruction as well as large hiatal hernia. ADMISSION DIAGNOSES: 1. Acute small-bowel obstruction. 2. Large hiatal hernia. DISCHARGE DIAGNOSES: 1. Acute small-bowel obstruction secondary to adhesions, resolved. 2. Large hiatal hernia surgically repaired. HOSPITAL COURSE: The patient was admitted to the surgical floor on 07/20/2017. She underwent surgic al repair of her hiatal hernia and small-bowel obstruction on 07/22/2017. After that, she was transf erred to the surgical floor. She was given supportive care including adequate pain control. PT and OT as well as medications to help with return of her bowel function. Although, she did tolerate the surgery well and was able to ambulate around the floor fairly quickly, she did have some issues with an unsteady gait. For this reason, we had PT and OT consult with her and recommended that she will b e transferred to a rehab facility prior to discharge home. She was discharged to the rehab hospital on 07/27/2017 in good condition. DISCHARGE MEDICATIONS: The patient was discharged to rehab with all of her inpatient medications as documented in the electronic medical record. She is not restarted any home medications. Activity as tolerated. NOURISHMENT INSTRUCTIONS: The patient is on a heart healthy diet. THERAPIES: Occupational therapy, physical therapy, wound care for dressing changes. FOLLOWUP INSTRUCTIONS: The patient is to follow up with Dr. Lemus in 2 weeks. The patient is also t o follow up with her primary care doctor as needed. This patient and her discharge planning was discussed with Dr. Dominguez in place of Dr. Lemus who is of f today.
== END 2017-07-27 16:50 | DRG 327 ==
LOC: ERS 10:31 → SURG B 13:50 → IMCU/EMU 07-22 13:16 → SURG B 07-22 15:04
PROVIDERS: ADMIT Family Medicine; ATTEND Family Medicine
PROC: 0DQ60ZZ Repair Stomach, Open Approach (ICD-10-PCS; principal; 2017-07-22)
PROC: 0BQT0ZZ Repair Diaphragm, Open Approach (ICD-10-PCS; 2017-07-22)
PROC: 0DN80ZZ Release Small Intestine, Open Approach (ICD-10-PCS; 2017-07-22)
PROC: 3E0T3BZ Introduction of Anesthetic Agent into Peripheral Nerves and Plexi, Percutaneous Approach (ICD-10-PCS; 2017-07-22)
DX: K56.50 Intestinal adhesions [bands], unspecified as to partial versus complete obstruction (principal); N39.0 Urinary tract infection, site not specified; E83.42 Hypomagnesemia; E87.6 Hypokalemia; K44.9 Diaphragmatic hernia without obstruction or gangrene
CPT/HCPCS: 36415; 43752; 71045; 74018; 74177; 74250; 80048; 80053; 81003; 81015; 83605; 83690; 83735; 83880; 84100; 85007; 85025; 85027; 86850; 86900; 86901; 93005; 93010; 96365; 96375; J2270; A4216; B4087; C9113; G8978-GP-CJ; G8978-GP-CK; G8979-GP-CI; G8979-GP-CK; G8980-GP-CK; G8987-GO-CL; G8988-GO-CI; J0131; J0670; J1200; J1940; J2001; J2060; J2250; J2405; J2543; J2704; J3010; J3475; J3480; J7050

== ENCOUNTER 2017-12-28 10:14 | Outpatient (CLI) | payer MEDICARE ==
--- NOTE | 2017-12-28 13:33 | MRI ---
MRI LUMBAR SPINE NONCONTRAST: History: Low back pain. Lifting injury. FINDINGS: Images including retroperitoneum show cysts arising from the kidneys. There is severe S-shaped rotato ry scoliotic curvature of the lumbar spine. Desiccation of all of intervertebral discs. Prominent mul tilevel discogenic endplate changes. Chronic compressions of the T11 and T12 vertebral bodies are andres arent. Central loss of signal has the appearance of vertebroplasty cement. No residual edema. Compression of the superior endplate of L3 is present with very mild loss of height. There is loss of T1 signal and increased T2 signal. No involvement of the posterior elements. T12-L1: Mild disc bulge. Thecal sac is patent. Degenerative changes with mild stenosis of each neural foramen. L1-2: Disc space narrowing. Minimal bulge. Thecal sac is patent. Moderate stenosis left neural forame n. L2-3: Minimal disc bulge. Disc space narrowing. Thecal sac is patent. Degenerative changes with moder ate stenosis left neural foramen. L3-4: Disc space narrowing. Minimal degenerative retrolisthesis. Posterior disc bulge. Circumferentia l degenerative changes with mild stenosis of the central canal and moderate to severe bilateral paddy inal stenoses, right greater than left. L4-5: Mild disc bulge. Thecal sac is patent. Moderate right and mild left foraminal stenoses. L5-S1: Minimal disc bulge. Thecal sac is patent. Degenerative changes with moderate right foraminal s tenosis. IMPRESSION: 1. Very mild compression of the L3 vertebral body with minimal loss of height. Residual edema through out the vertebral body bone marrow indicates that this is an acute injury. 2. Prominent multilevel degenerative changes of the lumbar spine, including foraminal stenoses that a re most severe along the concavities of the severe S-shaped rotatory scoliotic curvature. POS: [facility]
--- NOTE | 2017-12-28 13:48 | MRI ---
MRI OF THE PELVIS WITHOUT CONTRAST: Date: 12/28/17 INDICATIPON: History of compression fracture and severe low back pain and tailbone pain since Thursday. Possible l ifting injury. TECHNIQUE: Multiplanar, multisequence MR images were obtained of the pelvis without IV contrast. COMPARISON: CT of the abdomen and pelvis dated 07/20/17. FINDINGS: No definite acute fracture is evident. There is some advanced disc degenerative disease at L5-S1 that is stable to the CT examination. There is some mild edema seen within the obturator externus bilater ally, right greater than left. There is a partial thickness tear involving the left gluteus medius te ndon at the insertion involving approximately 50% of the tendon thickness. There is some fluid overly ing the left greater trochanter and fluid present within the left subgluteus minimus tendon. 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 No displaced fracture is seen involving the sacrum or coccyx. The uterus is surgically absent. No free fluid is evident within the pelvis. IMPRESSION: 1. Partial thickness undersurface tear of the left gluteus minimus tendon at the insertion involving approximately 50% of the tendon thickness with associated mild left trochanteric bursitis. 2. Mild muscular strains involving the obturator externus bilaterally. 3. No acute fracture demonstrated. 4. Mild chronic osteitis pubis. POS: [facility]
== END 2017-12-28 10:15 | disposition home or self-care (01) ==
LOC: SCSMRI 10:14
PROVIDERS: ATTEND Specialist
DX: S32.000A Wedge compression fracture of unspecified lumbar vertebra, initial encounter for closed fracture (principal); M70.60 Trochanteric bursitis, unspecified hip; S39.012A Strain of muscle, fascia and tendon of lower back, initial encounter
CPT/HCPCS: 72148; 72195

== ENCOUNTER 2018-05-19 11:13 | Outpatient (CLI) | payer MEDICARE ==
--- NOTE | 2018-05-19 18:32 | CT ---
CT OF PELVIS PERFORMED WITHOUT CONTRAST ENHANCEMENT: 05/19/18 HISTORY: Lower back pain. Evaluate for insufficiency fracture. The bones do appear somewhat demineralized. Arthritic changes of the lower lumbar spine are seen. SI joints are symmetric. I do not appreciate any evidence of any type of sacral or pelvic insufficien cy fractures. Minimal arthritic changes of both hips are seen. There is arthritic changes of the symp hysis. The visualized intrapelvic contents appear unremarkable. IMPRESSION: No evidence of insufficiency fracture. POS: [facility]
--- NOTE | 2018-05-19 19:02 | CT ---
CT OF LUMBAR SPINE PERFORMED WITHOUT CONTRAST ENHANCEMENT: 05/19/18 HISTORY: Low back pain. COMPARISON: CT chest, abdomen and pelvis that was performed 01/23/18. The bones are demineralized. There is scoliotic changes of the spine which is rather pronounced conve xed to the right. There are vertebroplasty changes at L3, T11 and T12. The compression changes at the se levels appear stable. There is also compression changes involving the superior end plate of L2 als o felt to be stable. T11-12: Unremarkable. T12-L1: No significant canal or foraminal stenosis. L1-2: No signs of canal or foraminal stenosis. L2-3: No signs of canal or foraminal narrowing at this level. L3-4: There is once again no signs of any significant canal or foraminal stenosis at this level. Ther e is some minimal extravasation of the vertebroplasty change into the right epidural space. L4-5: Disc bulge and facet and ligamentous hypertrophic changes are seen, but again no significant ca nal stenosis. L5-S1: Postop right laminectomy changes are noted. There is some asymmetric soft tissue changes at th is level extending into the right L5 foramen. This could be on the basis of scar versus disc material . IMPRESSION: 1. Multilevel compression changes of the lumbar spine that appears stable as compared to the colton or exam. 2. Right sided laminectomy change at the L5-S1 level. There is asymmetric soft tissue density ex tending out the right L5 foramen. This is potentially scar versus disc herniation. POS: [facility]
== END 2018-05-19 11:14 | disposition home or self-care (01) ==
LOC: SCSCT 11:13
PROVIDERS: ATTEND Specialist
DX: M84.48XA Pathological fracture, other site, initial encounter for fracture (principal); M51.16 Intervertebral disc disorders with radiculopathy, lumbar region; Z98.890 Other specified postprocedural states
CPT/HCPCS: 72131; 72192

== ENCOUNTER → 2018-05-25 | Day surgery (SDC) | payer MEDICARE ==
[2018-05-24 13:12] VITALS: BMI 22.4
[~2018-05-25] MED LIST: Iopamidol-M 200 41% 20 ML VIAL ONE; Prevnar 13-Val Conj/PF 0.5 ML SYRINGE IM ONE
[2018-05-25 07:45] VITALS: BP 157/80; TEMP 98.4
--- NOTE | 2018-05-25 10:45 | RAD ---
LUMBAR MYELOGRAM: Date: 05/25/18 HISTORY: Stenosis. Compression fracture. EXPOSURE: 0.8 minutes. 422.7 mGy*cm^2. FINDINGS: Initial 2 view lumbar spine factory maintenance manager radiograph demonstrates vertebroplasty change at what is presumed t o be the T11, T12, and L3 levels. There is rotatory scoliosis of the thoracolumbar junction. There is diffuse bone demineralization. Dorsal column stimulator is partially identified. Successful lumbar puncture for intrathecal contrast administration. A total of 10 mL of Isovue M200 c ontrast was administered intrathecally. No immediate or postprocedure complications. TECHNIQUE: Consent obtained to perform a lumbar puncture for intrathecal contrast administration. Patient's lumb ar spine is evaluated. The L3-L4 level is deemed appropriate. Skin was prepped and draped in the ster ile fashion. 1% lidocaine, buffered with sodium bicarbonate was used for local anesthesia. Under fluo roscopic guidance, a 22 gauge spinal needle was advanced into the CSF space. There is prompt flow of clear CSF into the hub of the needle. Via a short tubing catheter, a total of 10 mL of Isovue M200 co ntrast was administered intrathecally. Patient tolerated the procedure well. No immediate or postproc edure complications. IMPRESSION: Successful lumbar puncture for intrathecal contrast administration. Please refer to separate post mye logram CT for further detail. POS: [facility]
--- NOTE | 2018-05-26 07:39 | CT ---
CT LUMBAR SPINE WITH CONTRAST CT LUMBAR MYELOGRAM: INDICATION: Lumbar stenosis, history of compression, low back pain. FINDINGS: There is severe dextroscoliosis of the lumbar spine centered at the L2 level. There is marked lordos is, as well. Evidence of methylmethacrylate placement at L3, as well as within the incidentally imag ed T11 and T12 segments with associated compression deformities, mild at T11 and L3 and moderate heig ht loss at T12. Superior end plate compression deformity of L2 is present which appears chronic. No significant subluxation. There is multilevel bilateral moderate degenerative facet hypertrophy. Diffuse osseous demineralizat ion is present. L5-S1: There is a disk-osteophyte complex with minimal effacement of the ventral thecal sac. There is added soft tissue of the right foraminal and right lateral aspect of the vertebral canal related t o a right side hemilaminectomy, favoring epidural fibrosis. This does obscure the traversing right s pradeep nerve roots, since there is no high-grade left foraminal stenosis L4-5: There is a disk-osteophyte complex with mild central canal stenosis and moderate narrowing of the right subarticular zone with potential for impingement upon the traversing right L5 nerve root. There is mild right neural foraminal narrowing and minimal left neural foraminal narrowing. L3-4: Mild central canal stenosis is present as a result of disk-osteophyte complex. There is mild neural foraminal narrowing. No high-grade left foraminal stenosis. L2-3: Mild central canal narrowing due to disk-osteophyte complex. There is crowding of the left louis barticular zone due to osteophyte formation which crowds the leftward deviated nerve roots which are lateralized due to scoliotic curvature. There is mild to moderate left foraminal stenosis. No high- grade right foraminal narrowing. L1-2: Mild ventral thecal sac effacement and mild left subarticular stenosis due to left lateral dis k-osteophyte complex. Minimal narrowing of the left neural foramen. No high-grade right foraminal s tenosis. T12-L1: No significant compromise of the central canal. There is mild to moderate left foraminal st enosis due to disk-osteophyte and facet hypertrophy. There is minimal right foraminal narrowing. IMPRESSION: 1. Multilevel degenerative change throughout the lumbar spine as outlined above. 2. Postoperative findings of right hemilaminectomy at the L5-S1 level with prominent associated epid ural fibrosis which effaces the right side nerve roots. Correlate clinically for evidence of radicul opathic symptoms referable to this dermatomal distribution. POS: [facility]
== END ==
LOC: RAD 06:57 → EDSTATUS 08:00
PROVIDERS: ATTEND Specialist
PROC: B02B1ZZ Computerized Tomography (CT Scan) of Spinal Cord using Low Osmolar Contrast (ICD-10-PCS; principal; 2018-05-25)
DX: M41.9 Scoliosis, unspecified (principal); M48.061 Spinal stenosis, lumbar region without neurogenic claudication; M47.816 Spondylosis without myelopathy or radiculopathy, lumbar region; M51.17 Intervertebral disc disorders with radiculopathy, lumbosacral region; M48.07 Spinal stenosis, lumbosacral region; Z79.899 Other long term (current) drug therapy; Z98.890 Other specified postprocedural states
CPT/HCPCS: 62304; 72132

== ENCOUNTER 2018-07-05 06:16 | Outpatient (CLI) | payer MEDICARE ==
[2018-07-05 11:47] LABS: Mean Corpuscular HGB CONC 32.8 g/dL (32.0-36.0); Mean Corpuscular Hemoglobin 29.2 pg (27.0-31.0); Mean Platelet Volume 7.6 fL (7.4-10.4); Platelet Count 284 thou/uL (130-400); RBC Distribution Width 12.4 % (11.5-14.5); White Blood Cell (WBC) Count 7.6 thou/uL (4.8-10.8)
[2018-07-05 11:55] LABS: INR-International Normal Ratio 1.1; PTT 29.5 SEC (22.9-36.1)
[2018-07-05 12:28] LABS: Anion Gap 15 mmol/L (10-20); BUN (Urea Nitrogen) 15 mg/dL (9.8-20.1); Calc. Creatinine Clearance 0 mL/min (70-130); Calcium 9.4 mg/dL (7.8-10.44); Carbon Dioxide 22 mmol/L (23-31); Chloride 109 mmol/L (98-107); Estimated GFR-MDRD 90; Glucose 88 mg/dL (83-110); Potassium 3.7 mmol/L (3.5-5.1); Sodium 142 mmol/L (136-145)
== END 2018-07-05 06:17 | disposition home or self-care (01) ==
LOC: LABBT 06:16
PROVIDERS: ATTEND Surgery
DX: Z01.818 Encounter for other preprocedural examination (principal); M54.16 Radiculopathy, lumbar region
CPT/HCPCS: 80048; 85027; 85610; 85730; 93005; 93010

== ENCOUNTER 2018-07-08 09:19 | Day surgery (SDC) | payer MEDICARE ==
[2018-07-05 10:37] VITALS: BMI 20.5
[2018-07-08] MEDS ORDERED: CEFAZOLIN 2 GM/50 ML BAG ONE (10:52)
[2018-07-08] MEDS ORDERED: Bacitracin Zinc Ointment 30 gm TUBE ONE (12:02)
[2018-07-08] MEDS ORDERED: Thrombin 5000 UNITS/5 ML VIAL ONE (12:02)
[2018-07-08] MEDS ORDERED: Sodium Chloride 0.9% 10 ML ONE (12:02)
[2018-07-08] MEDS ORDERED: Propofol 1,000 MG/100 ML VIAL IV ONE (12:40)
[2018-07-08] MEDS ORDERED: Fentanyl 100 MCG/2 ML VIAL ONE ×3 (12:40→15:41)
[2018-07-08] MEDS ORDERED: Bupivacaine PF 0.5% 30 ML VIAL ONE (13:35)
[2018-07-08] MEDS ORDERED: PROPOFOL 200 MG/20 ML VIAL ONE (15:12)
[2018-07-08] MEDS ORDERED: Lidocaine 1% PF 5 ML VIAL ONE (15:12)
[2018-07-08] MEDS ORDERED: Rocuronium Bromide 10 MG/ML (10ML VIAL) ONE (15:12)
[2018-07-08] MEDS ORDERED: Glycopyrrolate 0.2 MG/ML 5 ML SYRINGE ONE (15:12)
[2018-07-08] MEDS ORDERED: ePHEDrine/0.9% NaCl/PF SYRINGE 50 mg/10 ml ONE (15:12)
[2018-07-08] MEDS ORDERED: Ondansetron PF 4 MG/2 ML Vial ONE (15:12)
[2018-07-08] MEDS ORDERED: Morphine 2 MG/ML SYRINGE ONE (16:54)
--- NOTE | 2018-07-08 21:00 | OP ---
DATE OF PROCEDURE: 07/08/2018 PREOPERATIVE DIAGNOSES: 1. Chronic pain syndrome. 2. Lumbar radiculopathy. POSTOPERATIVE DIAGNOSES: 1. Chronic pain syndrome. 2. Lumbar radiculopathy. PROCEDURES PERFORMED: 1. Spinal cord stimulator generator removal. 2. Spinal cord stimulator paddle array removal. DESCRIPTION OF PROCEDURE: The patient was taken to the operating room and placed prone on the operating room table. The back was prepped with ChloraPrep, Ioban was applied as well as sterile dressings were applied. Fluoroscopy was used to locate the paddle. A vertical incision was made and dissected down to the paddle entry site. On the generator level, an incision was made and bluntly dissected down to the battery pocket. This was opened, the battery was removed and the leads were removed from the battery. The leads were pulled through to the paddle pocket. The pocket was then cauterized and sutured with 2-0 Vicryl stitches. This was then further approximated with Monocryl. Then I assisted Dr. Siegel in removing the paddle array. Please see his dictation for the summary of that procedure. The patient was then taken to PACU under stable condition. No apparent complications were noted at this time. Job ID: [id number]
--- NOTE | 2018-07-09 11:27 | OP ---
DATE OF PROCEDURE: 07/09/2018 OPERATING ROOM: OR 11. SPEECH LANGUAGE SPECIALIST: Minesh Caruso PA-C. Dr. Melinda Whalen and I did the surgery together. PREPROCEDURE DIAGNOSIS: Need for removal of spinal cord stimulator placed at an outside institution. POSTPROCEDURE DIAGNOSIS: Need for removal of spinal cord stimulator placed at an outside institution. PROCEDURES PERFORMED: 1. Removal of thoracic spinal cord stimulator lead, Paddle. 2. Removal of pulse generator (Dr. Whalen performed that portion of the surgery). DESCRIPTION OF PROCEDURE: After informed consent was obtained from the patient, the patient was brought to OR. Proper patient, pause, and identification were carried out. She was positioned prone. Following general anesthesia, and the thoracic region identified. This region was sterilely cleansed, prepared, and draped, and Dr. Whalen assessed the region of the pulse generator. After proper patient pause and identification, I opened up the thoracic wound and identified the leads, started to remove them. I followed it down and did a small laminectomy at the midthoracic section to reveal the scarred in paddle. This was removed in its entirety and confirmed with both gross and fluoroscopic visualization. Dr. Whalen removed his portion as well. We ensured the leads were also removed. Copious irrigation occurred throughout as did maximizing hemostasis. The wound was then closed in anatomic layers. The patient then emerged from anesthesia. Job ID: [id number]
== END 2018-07-08 18:13 | disposition home or self-care (01) ==
LOC: SDC 09:19
PROVIDERS: ATTEND Surgery
PROC: 00PU0MZ Removal of Neurostimulator Lead from Spinal Canal, Open Approach (ICD-10-PCS; principal; 2018-07-08)
PROC: 0JPT0MZ Removal of Stimulator Generator from Trunk Subcutaneous Tissue and Fascia, Open Approach (ICD-10-PCS; 2018-07-08)
DX: M96.1 Postlaminectomy syndrome, not elsewhere classified (principal); M51.16 Intervertebral disc disorders with radiculopathy, lumbar region; G89.4 Chronic pain syndrome
CPT/HCPCS: 76000; 96374; J2001; J2270; J2405; J2704; J3010; J3370; J3490; S0020

== ENCOUNTER 2018-07-12 13:28 | Outpatient (CLI) | payer MEDICARE ==
--- NOTE | 2018-07-12 15:28 | RAD ---
LUMBAR SPINE SERIES: History: Back pain. Comparison: 05-25-18 CT examination. FINDINGS: There is a fairly pronounced scoliotic change, convex to the right. The bones are diffusely demineral ized. Vertebroplasty changes are seen at T11, T12, and L3. There is loss of vertebral body height inv olving L2 which is felt to be stable. I do not see any definite new compression injury. IMPRESSION: Marked diffuse bony demineralization, vertebroplasty changes and compression changes which appear sta ble. POS: [facility]
--- NOTE | 2018-07-12 16:58 | RAD ---
RADIOGRAPH THORACIC SPINE THREE VIEWS: 07/12/2018 HISTORY: An 83-year-old female with thoracic spondylosis. COMPARISON: No prior dedicated thoracic spine plain radiographs. FINDINGS: There is diffuse osteopenia. There is compression fracture deformity of the T5 vertebral body with a maximum of approximately 75% loss of height anteriorly. There is vertebroplasty within the T11 vertebral body, which also has loss of height. There is vertebroplasty cement within the T12 vertebral body, with significant loss of height. There is a prominent dextroscoliosis with apex of curvature at the thoracolumbar junction. IMPRESSION: 1. Old compression fractures of T11 and T12, treated with vertebroplasty. 2. Compression fracture of T5, of indeterminate age. 3. Dextroscoliosis at the thoracolumbar junction. 4. Osteopenia. POS: [facility]
== END 2018-07-12 13:29 | disposition home or self-care (01) ==
LOC: SCSRAD 13:28
PROVIDERS: ATTEND Specialist
DX: M47.816 Spondylosis without myelopathy or radiculopathy, lumbar region (principal); M47.814 Spondylosis without myelopathy or radiculopathy, thoracic region; M41.9 Scoliosis, unspecified; M85.80 Other specified disorders of bone density and structure, unspecified site; Z98.890 Other specified postprocedural states; Z87.81 Personal history of (healed) traumatic fracture
CPT/HCPCS: 72072; 72100

== ENCOUNTER 2018-07-19 14:14 | Outpatient (CLI) | payer MEDICARE ==
[~2018-07-19 14:14] MED LIST changes: +Gadobenate Dimeglumine 529 MG/1 ML (20ML VIAL) ONE; -Iopamidol-M 200 41% 20 ML VIAL ONE; -Prevnar 13-Val Conj/PF 0.5 ML SYRINGE IM ONE
--- NOTE | 2018-07-19 17:36 | MRI ---
MRI PELVIS WITHOUT CONTRAST: INDICATIONS: Concern for sacral insufficiency fracture. COMPARISON: 12/28/2017 FINDINGS: There is acute superior endplate compression abnormality of L4 that is seen best on the coronal image s of the pelvis. There is a heterogeneous T1 and T2 signal fluid collection within the subcutaneous tissues, near the region of a prior generator pack, overlying the left gluteal region, measuring 4 x 5.4 cm, consistent with a hematoma. No sacral insufficiency fracture is evident. No abnormal marrow signal is seen involving the proximal femurs or the remaining visualized aspects of the pelvis. Par tial-thickness tear involving the left gluteus minimus appears similar. There is a partial-thickness articular surface tear of the left gluteus medius tendon that is slightly more conspicuous than seen on the comparison exam. Mild trochanteric bursitis is again demonstrated. A small amount of fluid extending from the left hip joint invaginates along the iliopsoas tendon. No overt bursitis is evide nt. Hamstring and rectus femoris origins appear within normal limits. Obturator externus strain on the left has resolved. A mild amount of edema is seen within the right hip adductor musculature. No free fluid is evident. IMPRESSION: 1. Acute superior endplate compression fracture of L4. No sacral insufficiency fracture is evident. 2. Subcutaneous hematoma seen within a generator pack site overlying the left gluteal region, likely related to recent removal of the generator pack. Recommend correlation. 3. Partial-thickness articular surface tears of the left gluteus minimus and medius tendons with ass ociated mild trochanteric bursitis. 4. Mild adductor muscular strain of the right hip is new from the prior examination. POS: KWAME
--- NOTE | 2018-07-19 18:27 | MRI ---
MRI LUMBAR SPINE WITH AND WITHOUT CONTRAST: INDICATIONS: Wedge compression fracture at an unspecified lumbar vertebral level. COMPARISON: CT lumbar spine myelogram dated 05/25/2018. FINDINGS: Since the comparison examination, there has been interval development of a superior endplate compress ion fracture of L4. There are some mild edematous change seen within the L3-L4 intervertebral disk l evel. Compression abnormalities with vertebroplasty change at L3, T12, and T11 are stable. [place] superior endplate compression abnormalities at L2 are similar appearing. Prominent dextroscoliosi s of the lumbar spine is similar appearing. There is stable post surgical change of a right hemilaminectomy at the L5-S1 level. At L5-S1, there is prominent epidural fibrosis surrounding the exiting right L5 nerve root, as well a s within the right posterolateral epidural space. There is a broad-based bulge but no appreciable le ft-sided neural foraminal narrowing. There is moderate right neural foraminal narrowing due to the b road-based bulge and facet hypertrophy. At the L4-L5 level, there is an [id number]-right, broad-based disk bulge inducing mild right n eural foraminal narrowing. 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 At L3-L4, there is a broad-based bulge with facet hypertrophy, inducing mild right neural foraminal n arrowing. At the L2-L3 level, there is a broad-based disk osteophyte complex but no appreciable central canal o r neural foraminal narrowing. At L1-L2, there is a broad-based disk osteophyte complex with no appreciable central canal or neural foraminal narrowing. At T12-L1, there is a disk osteophyte complex and facet joint degenerative change inducing mild left neural foraminal narrowing. There are left-sided renal cysts. One of the largest is seen in the left kidney, measuring 2.2 cm. There is partial visualization of a subcutaneous hematoma overlying a prior generator pack site of th e left gluteal region. IMPRESSION: 1. Interval development of an L4 superior endplate compression abnormality with loss of height of ap proximately 10% to 15%. 2. Prominent epidural fibrosis seen along a right hemilaminectomy site at L5-S1, with perineural fib rosis involving the exiting right L5 nerve root. 3. 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 4. Chronic compression abnormalities of T11, T12, L2, and L3, with vertebroplasty change at T11, T12 , and L3. 5. Left gluteal region hematoma from prior generator pack site. 6. 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 POS: KWAME
== END 2018-07-19 14:15 | disposition home or self-care (01) ==
LOC: TBSIIMAG 14:14
PROVIDERS: ATTEND Specialist
DX: M84.48XA Pathological fracture, other site, initial encounter for fracture (principal); S32.040A Wedge compression fracture of fourth lumbar vertebra, initial encounter for closed fracture; I42.3 Endomyocardial (eosinophilic) disease; M47.816 Spondylosis without myelopathy or radiculopathy, lumbar region; G95.19 Other vascular myelopathies; M70.62 Trochanteric bursitis, left hip; S76.011A Strain of muscle, fascia and tendon of right hip, initial encounter; R93.7 Abnormal findings on diagnostic imaging of other parts of musculoskeletal system; Z98.890 Other specified postprocedural states
CPT/HCPCS: 72158; 72195; A9577

== ENCOUNTER 2018-08-06 06:00 | Day surgery (SDC) | payer MEDICARE ==
[2018-08-05 13:24] VITALS: BMI 20.5
[2018-08-06] MEDS ORDERED: Thrombin 5000 UNITS/5 ML VIAL ONE (06:31)
[2018-08-06] MEDS ORDERED: Sodium Chloride 0.9% 10 ML ONE (06:31)
[2018-08-06] MEDS ORDERED: Bacitracin Zinc Ointment 30 gm TUBE ONE (06:31)
[2018-08-06] MEDS ORDERED: Fentanyl 100 MCG/2 ML VIAL ONE ×4 (07:03→13:35)
[2018-08-06 07:17] LABS: #Eosinphils 0.1 thou/uL (0.0-0.7); #Lymphocytes 3.1 thou/uL (1.20-3.40); #Monocytes 0.8 thou/uL (0.11-0.59); #Neutrophils 4.4 thou/uL (1.40-6.50); %Basophils 0.3 % (0.0-1.0); %Eosinophils 1.5 % (0.0-10.0); %Lymphocytes 37.2 % (21.0-51.0); %Monocytes 9.4 % (0.0-10.0); %Neutrophils 51.5 % (42.0-75.0); Hemoglobin 13.5 g/dL (12.0-16.0); Mean Corpuscular HGB CONC 31.7 g/dL (32.0-36.0); Mean Corpuscular Hemoglobin 29.1 pg (27.0-31.0); Mean Corpuscular Volume 91.6 fL (78.0-98.0); Mean Platelet Volume 6.9 fL (7.4-10.4); Platelet Count 281 thou/uL (130-400); RBC Distribution Width 12.8 % (11.5-14.5); Red Blood Cell (RBC) Count 4.64 mill/uL (4.20-5.40); White Blood Cell (WBC) Count 8.5 thou/uL (4.8-10.8)
[2018-08-06 07:26] LABS: PTT 27.1 SEC (22.9-36.1); Prothrombin Time 13.7 SEC (12.0-14.7)
[2018-08-06] MEDS ORDERED: Midazolam HCl 2 mg/2 ml Vial ONE (07:28)
[2018-08-06 07:40] LABS: Anion Gap 15 mmol/L (10-20); BUN (Urea Nitrogen) 17 mg/dL (9.8-20.1); Calc. Creatinine Clearance 52 mL/min (70-130); Calcium 9.9 mg/dL (7.8-10.44); Carbon Dioxide 23 mmol/L (23-31); Chloride 107 mmol/L (98-107); Estimated GFR-MDRD 79; Glucose 91 mg/dL (83-110); Potassium 3.8 mmol/L (3.5-5.1); Sodium 141 mmol/L (136-145)
[2018-08-06] MEDS ORDERED: Acetaminophen 325 MG TAB PO PRN (10:53)
[2018-08-06] MEDS ORDERED: Milk Of Magnesia 30 ML UDCUP PO PRN (10:53)
[2018-08-06] MEDS ORDERED: Bisacodyl 10 MG SUPP PR PRN (10:53)
[2018-08-06] MEDS ORDERED: Promethazine HCl 25 MG/ML VIAL IM PRN (10:53)
[2018-08-06] MEDS ORDERED: Mag-Al 1200 mg/1200 mg/30 ML UDCUP PO PRN (10:53)
[2018-08-06] MEDS ORDERED: ALPRAZolam 0.25 MG TAB PO PRN (10:55)
[2018-08-06] MEDS ORDERED: oxyCODONE/Acetaminophen 5 mg/325 mg Tablet PO PRN (10:55)
[2018-08-06] MEDS ORDERED: Promethazine HCl 25 MG/ML VIAL ONE (10:58)
[2018-08-06] MEDS ORDERED: CEFAZOLIN/Water 2 GM/20 ML SYRINGE SLOW IVP SCH (11:00)
[2018-08-06] MEDS ORDERED: Promethazine HCl 25 MG/ML VIAL IM/IV PRN (11:34)
[2018-08-06] MEDS ORDERED: HYDROmorphone 2 MG/ML VIAL SLOW IVP PRN (11:34)
[2018-08-06] MEDS ORDERED: Ondansetron HCl/PF 4 MG/2 ML Vial IVP PRN (11:34)
[2018-08-06] MEDS ORDERED: Non-Formulary Medication 1 EACH PO PRN (11:34)
[2018-08-06] MEDS ORDERED: HYDROmorphone 2 MG/ML VIAL ONE (12:01)
--- NOTE | 2018-08-06 12:46 | OP ---
DATE OF PROCEDURE: 08/06/2018 SENIOR GRADUATE ADVISOR: Minesh Caruso PA-C. PREPROCEDURE DIAGNOSES: Right L5 radiculopathy with right L5 foraminal stenosis and history of prior right L5-S1 decompressive surgery at outside institution. POSTPROCEDURE DIAGNOSES: Right L5 radiculopathy with right L5 foraminal stenosis and history of prior right L5-S1 decompressive surgery at outside institution. PROCEDURE PERFORMED: 1. Revision right L5-S1 hemilaminotomy, foraminotomy, and diskectomy. 2. Use of operative microscope for microdissection. 3. This surgery was done after the removal of the patient's spinal cord stimulator to allow us to get an MRI for operative specifically decompression surgery planning. DESCRIPTION OF PROCEDURE: After informed consent was obtained from the patient, the patient was brought to the OR. Proper patient, pause, and identification were carried out. She was placed under excellent general endotracheal anesthesia and positioned prone on the OR table. All appropriate points were padded. We identified the prior L5-S1 linear incision. This area was sterilely cleansed, prepared and draped. Proper patient, pause and identification were carried out. We then opened the wound and cut an exuberant scar tissue and proceeded over the right L5-S1 segment. Localization film confirmed area of interest. We then did a revision right L5-S1 decompression with excellent decompression of the right L5 and the right S1 nerve root. There was no spinal fluid leak. We were very pleased with our decompression and the diskectomy. Wound was then copiously irrigated and closed in anatomic layers. The patient then emerged from anesthesia. Job ID: [id number]
[2018-08-06] MEDS: Fleet Enema 133 ML BOT PR SCH (13:35)
[2018-08-06] MEDS: CEFAZOLIN 2 GM in Premix Bag 1 BAG IVPB SCH (16:08)
[2018-08-06] MEDS: Acetaminophen/Codeine 30-300mg Tablet PO PRN (16:08)
[2018-08-06] MEDS: Polyethylene Glycol 3350 17 GM Packet PO PRN (16:08)
[2018-08-06] MEDS: tiZANidine HCl 4 MG TAB PO PRN (16:08)
[2018-08-06] MEDS: Sodium Chloride 0.9% 1,000 ML IV SCH (16:10)
[2018-08-06] MEDS ORDERED: Ketorolac Tromethamine 30 MG/ML VIAL ONE (16:23)
[2018-08-06] MEDS ORDERED: PROPOFOL 200 MG/20 ML VIAL ONE (16:23)
[2018-08-06] MEDS ORDERED: Ondansetron PF 4 MG/2 ML Vial ONE (16:23)
[2018-08-06] MEDS ORDERED: Dexamethasone 20 MG/5 ML VIAL ONE (16:23)
[2018-08-06] MEDS ORDERED: Lidocaine 1% PF 5 ML VIAL ONE (16:23)
[2018-08-06] MEDS ORDERED: Rocuronium Bromide 10 MG/ML (10ML VIAL) ONE (16:23)
[2018-08-06] MEDS: Melatonin 3 MG TAB PO SCH (21:27)
[2018-08-07] MEDS: CEFAZOLIN 2 GM in Premix Bag 1 BAG IVPB SCH (00:40)
[2018-08-07] MEDS: Sodium Chloride 0.9% 1,000 ML IV SCH ×2 (02:40→14:13)
[2018-08-07] MEDS: traMADol HCl 50 MG TAB PO PRN ×2 (06:32→18:48)
[2018-08-07] MEDS: Acetaminophen/Codeine 30-300mg Tablet PO PRN ×3 (09:39→20:48)
[2018-08-07] MEDS: Multivit, Therapeutic 1 TAB PO SCH (09:41)
[2018-08-07] MEDS: tiZANidine HCl 4 MG TAB PO PRN ×2 (12:26→20:47)
--- NOTE | 2018-08-07 12:45 | PRG ---
DATE OF SERVICE: 08/07/2018 Ms. Blankenship is doing well postoperative day 1 from right-sided revision L5-S1 hemilaminotomy, foraminotomy, and decompression with diskectomy. She has no hip or leg pain. She is already mobilized in the hallway. She does have incisional perioperative muscular pain, not surprising. She is very sensitive to pain medication, which makes it difficult to control her pain and I would advocate that we keep her one more day to make sure we have satisfactory pain control and get her further out from her surgical period to avoid having to use the pain medicine that would not work on this patient and potentially lead to side effects. Job ID: [id number]
[2018-08-07] MEDS: Fleet Enema 133 ML BOT PR SCH (14:12)
[2018-08-07] MEDS: Polyethylene Glycol 3350 17 GM Packet PO PRN (18:51)
[2018-08-07] MEDS: Melatonin 3 MG TAB PO SCH (20:47)
[2018-08-08] MEDS: Sodium Chloride 0.9% 1,000 ML IV SCH (03:55)
[2018-08-08] MEDS: Acetaminophen/Codeine 30-300mg Tablet PO PRN (07:36)
[2018-08-08] MEDS: Multivit, Therapeutic 1 TAB PO SCH (07:36)
[2018-08-08] MEDS: tiZANidine HCl 4 MG TAB PO PRN (07:36)
[2018-08-08] MEDS: Fleet Enema 133 ML BOT PR SCH (09:56)
[2018-08-08 11:57] VITALS: BP 99/55; TEMP 97.9
--- NOTE | 2018-08-08 12:18 | PRG ---
DATE OF SERVICE: 08/08/2018 SUBJECTIVE: Ms. Blankenship is postoperative day 2 following right L5-S1 revision hemilaminotomy and right L5 foraminotomy. She states she has had significant improvement in her right leg pain and has ambulated multiple times. Her strength is excellent. Her pain has been well controlled and she would like to go home. I would be fine with dismissal, and followup has been arranged. Job ID: [id number]
== END 2018-08-08 14:39 | disposition home or self-care (01) ==
LOC: SDC 06:00 → SJJU 10:53 → SDC 08-08 14:39
PROVIDERS: ATTEND Surgery
PROC: 00JV0ZZ Inspection of Spinal Cord, Open Approach (ICD-10-PCS; principal; 2018-08-06)
DX: M54.16 Radiculopathy, lumbar region (principal); M48.061 Spinal stenosis, lumbar region without neurogenic claudication
CPT/HCPCS: 36415; 76000; 80048; 85025; 85610; 85730; J1100; J1170; J1885; J2001; J2250; J2405; J2550; J2704; J3010; J3370; J3490

== ENCOUNTER 2018-10-18 12:49 | Outpatient (CLI) | payer MEDICARE ==
--- NOTE | 2018-10-18 17:55 | MRI ---
EXAM: RIGHT HIP MRI WITHOUT IV CONTRAST: History: Right hip pain, low back pain radiating to right hip, avascular necrosis bone right hip. FINDINGS: Multiplanar, multisequence MRI examination of the right hip is performed. There appears to be some minimal edematous changes and fat stranding in the inferior right low back p osterior musculature possibly from prior surgery. There is evidence for some bilateral hip joint arth rosis with some joint space narrowing. A small right acetabular subchondral cystic focus is noted. No evidence for avascular necrosis or other abnormal marrow signal to suggest stress fracture or other acute injury of the femur. Mild increased activity in the gluteus medius insertion, evidence for some focal tendonopathy. There is also evidence for some tendinopathy in both right and left common hamst ring tendon insertion regions. Additional increased signal involving the left gluteus medius tendon i nsertion region, evidence for a left sided tendinopathy with some minimal fluid in the left trochante shea bursal region, possibly some mild bursitis. IMPRESSION: Evidence for some bilateral common hamstring and gluteus medius tendinopathy. Arthrosis changes of maria isabel th hip joints with hip joint space loss and minimal subchondral cystic changes on the right side but no evidence for avascular necrosis, fracture, or acute stress injury. No other significant acute proc ess involving the pelvis or hips. POS: WKAME
--- NOTE | 2018-10-18 18:03 | MRI ---
MRI LUMBAR SPINE WITH AND WITHOUT CONTRAST: Indications: Wedge compression fracture lumbar spine. Back pain. Comparison: 07-19-18 FINDINGS: Severe degenerative changes of the lumbar spine again noted. Evidence of prior vertebroplasty procedu res are seen at multiple levels. Severe compression deformity at T12 is again seen and is stable. The superior endplate compression of L4 was described previously. There has been no significant progr ession at this site. There is no significant edema present. The vertebroplasty cement at T11, T12, L3 again noted. There is evidence of placement of vertebroplasty cement at L4 since prior study. There are post op laminectomy changes on the right at L5-S1. The prior exam showed diffuse enhancemen t at the operative site and to the epidural space on the right and extending posteriorly into the par aspinal tissues. On today's exam there is now evidence of a fluid collection seen in the right paraspinal region at th e operative site at L5-S1. This is a new collection when compared to the prior study. There is surrou nding enhancement. Findings are concerning for abscess development at this site. This fluid signal me asures 1.2 cm width x approximately 4 cm AP dimension in the axial plane. In the sagittal plane, this fluid signal which exhibits high T2 signal extends from L5-S1 disc inferiorly along the sacrum measu ring 2.6 cm. The posterior disc bulge is seen at all lumbar levels and appears unchanged from prior exam. IMPRESSION: 1. No progression of the superior endplate compression at L4 when compared to prior study. The lumbar vertebral bodies maintain height. Degenerative changes are noted with significant scoliotic curvatur e as noted previously. 2. Post-operative changes on the right at L5-S1 again noted with enhancement in the operative bed. Th ere is now a fluid dense collection at this site which extends to the epidural space and extends post eriorly in the paraspinal tissues to the skin surface. There is surrounding enhancement. Abscess is t he diagnosis of exclusion. POS: [facility]
--- NOTE | 2018-10-18 18:12 | MRI ---
EXAM: PELVIS MRI WITHOUT IV CONTRAST: History: Sacral insufficiency fracture, sacrum and coccyx pain. Low back pain radiating to right hip. FINDINGS: Severe lumbar spine degenerative disease with some post-operative changes at L5-S1 on the right side of the thecal sac and right posterior elements, evidence for prior surgery, with some associated flui d and fat stranding. No evidence for abnormal marrow signal involving the sacrum or coccyx region lyn t would suggest fracture or stress or insufficiency injury. Bilateral hip joint arthrosis. There is a small amount of fluid within the iliopsoas bursa. IMPRESSION: Post-operative changes involving the lumbosacral spine and upper right sacrum. No evidence for sacral or coccygeal fracture of insufficiency or stress type fracture. Other findings as above. POS: KWAME
== END 2018-10-18 12:50 | disposition home or self-care (01) ==
LOC: SCSMRI 12:49
PROVIDERS: ATTEND Specialist
DX: M84.48XA Pathological fracture, other site, initial encounter for fracture (principal); S32.000A Wedge compression fracture of unspecified lumbar vertebra, initial encounter for closed fracture; M51.17 Intervertebral disc disorders with radiculopathy, lumbosacral region; M87.051 Idiopathic aseptic necrosis of right femur; M16.0 Bilateral primary osteoarthritis of hip; Z98.890 Other specified postprocedural states
CPT/HCPCS: 72158; 72195; 82565

== ENCOUNTER 2018-11-26 12:55 | Outpatient (CLI) | payer MEDICARE ==
--- NOTE | 2018-11-26 14:07 | CT ---
CT lumbar spine without contrast: HISTORY: Compression fracture. Chronic back pain with recent point tenderness to palpation in the lower back. History of osteoporosis. COMPARISON: CT lumbar spine on 05/19/2018 and MRI lumbar spine on 10/18/2018. FINDINGS: There are linear parenchymal changes at the right lung base similar to study in 2018 which may be rel ated to mild scarring or chronic area of atelectasis. Motion artifact is present at the right lung base. There is a stable hypodense left renal lesion likely due to a renal cyst. Vascular calcifications are seen in the abdominal aorta and involving visualized iliac arteries. There is colonic diverticulosis. There are vertebroplasty changes involving compression fractures of the T11, T12, L3, and L4 vertebra l bodies. Multilevel degenerative changes are present with severe right convex scoliosis of the lumbar spine. Postsurgical changes lower lumbar spine are present with right laminotomy defect at the L5-S1 level also noted on prior exam. T11-12 level: There is retropulsion of the posterior superior endplate of the T12 vertebral body rela patricia to the burst fracture which results in mild effacement of the ventral subarachnoid space with encroachment on the spinal cord. The neural foramina are patent. T12-L1 level: There is loss of intervertebral disc height with vacuum phenomenon present. Minimal dis c osteophyte complex present. There is no significant narrowing central spinal canal. There is mild left-sided neural foraminal narrowing due to facet hypertrophic changes. L1-2: There is loss of intervertebral disc height. There is mild disc osteophyte complex present with out significant narrowing central spinal canal. Neural foramina are patent. L2-3: Endplate degenerative changes are present at this level. There is narrowing involving the later al aspect of the joint space related to scoliotic curvature. Mild disc osteophyte complex is present with mild effacement of the ventral aspect of the thecal sac. There is mild left-sided neural foraminal narrowing. The right neural foramen is patent. L3-4: There is vacuum phenomenon at this level. There is a disc osteophyte complex present. Mild face t degenerative changes are noted. There is mild narrowing of the central spinal canal with mild right-sided neural foraminal narrowing. The left neural foramen is patent. L4-5: Loss of intervertebral disc height. There are prominent right-sided facet hypertrophic changes. Mild disc osteophyte complex is present. There is mild effacement of the ventral aspect of the thecal sac. Left neural foramen is patent with mild right-sided neural foraminal narrowing. L5-S1: Right laminotomy defect is present. Decreased attenuation posterior to the defect with decreas ed attenuation seen adjacent to the spinous processes of L5 and S1. Small fluid collection was noted in this region on MRI on 10/18/2018. This is difficult to assess based on this CT exam. Low-atte nuation material does extend anteriorly with soft tissue appearing density seen adjacent to the right aspect of the thecal sac which may represent mild area of scarring but inflammatory process is a possibility given adjacent fluid collection. These findings were better visualized on MRI of the lumbar spine on 10/18/2018. There is mild effacement of the right lateral aspect of the thecal sac. Th e nerve root in the right neural foramen is unable to be delineated due to adjacent soft tissue density. Left neural foramen is patent. There is unroofing of the right neural foramen with absence o f the facets in this region which could be related to recent interval post surgical changes compared to CT exam in 2018, but absence of the facet joints due to pathological process and infectio n cannot be entirely excluded. IMPRESSION: 1. Postsurgical changes L5-S1 level with right laminotomy defect present. Fluid attenuation was noted in this region on the prior MRI exam which does persist on this study. However, there is a greater amount of soft tissue density now seen adjacent to the right aspect of the thecal sac and extending i nto the right neural foramen. No focus of gas is seen, but given the enhancement surrounding the fluid collection on MRI, abscess collection should be considered. Soft tissue density adjacent to the right aspect of the thecal sac at the L5-S1 has increased and may be related to either worsening scar formation or secondary to increase in inflammatory changes due to adjacent fluid collection whic h could potentially represent abscess collection. There is unroofing of the right neural foramen with absence of a portion of the facets in this region which was not seen on the prior CT exam in 201 8. This could be related to interval postsurgical changes, but this could potentially be pathological related to infectious process. The right L5 nerve root is unable to be delineated in thi s region. MRI of the lumbar spine with and without IV contrast is recommended. 2. Moderate to severe right convex scoliosis with vertebroplasty changes involving multiple vertebral bodies. No new compression fracture of the lumbar spine is seen. 3. Multilevel degenerative changes.
== END 2018-11-26 12:56 | disposition home or self-care (01) ==
LOC: SCSCT 12:55
PROVIDERS: ATTEND Specialist
DX: S32.059A Unspecified fracture of fifth lumbar vertebra, initial encounter for closed fracture (principal); M41.9 Scoliosis, unspecified; M47.9 Spondylosis, unspecified; Z98.890 Other specified postprocedural states
CPT/HCPCS: 72131

== ENCOUNTER 2019-03-29 13:15 | Inpatient (IN) | payer MEDICARE ==
[2019-03-28 16:22] VITALS: BMI 21.6
[~2019-03-29 13:15] MED LIST changes: +Dexamethasone 20 MG/5 ML VIAL ONE; -Gadobenate Dimeglumine 529 MG/1 ML (20ML VIAL) ONE; +Glycopyrrolate 0.2 MG/ML 5 ML SYRINGE ONE; +Ketorolac Tromethamine 30 MG/ML VIAL ONE; +Lidocaine 1% PF 5 ML VIAL ONE; +Ondansetron PF 4 MG/2 ML Vial ONE; +PROPOFOL 200 MG/20 ML VIAL ONE; +Rocuronium Bromide 10 MG/ML (10ML VIAL) ONE; +ePHEDrine 50 MG/ML VIAL ONE
[2019-03-29 14:12] LABS: #Eosinphils 0.1 thou/uL (0.0-0.7); #Lymphocytes 2.3 thou/uL (1.20-3.40); #Monocytes 0.7 thou/uL (0.11-0.59); #Neutrophils 4.9 thou/uL (1.40-6.50); %Basophils 0.5 % (0.0-1.0); %Eosinophils 0.7 % (0.0-10.0); %Monocytes 9.2 % (0.0-10.0); %Neutrophils 60.6 % (42.0-75.0); Hemoglobin 13.8 g/dL (12.0-16.0); Mean Corpuscular HGB CONC 33.1 g/dL (32.0-36.0); Mean Corpuscular Hemoglobin 30.2 pg (27.0-31.0); Mean Corpuscular Volume 91.5 fL (78.0-98.0); Mean Platelet Volume 7.1 fL (7.4-10.4); Platelet Count 289 thou/uL (130-400); RBC Distribution Width 12.9 % (11.5-14.5); Red Blood Cell (RBC) Count 4.58 mill/uL (4.20-5.40); White Blood Cell (WBC) Count 8.1 thou/uL (4.8-10.8)
[2019-03-29] MEDS ORDERED: Lidocaine 1% (PF) 30 ML VIAL ONE (14:12)
[2019-03-29] MEDS ORDERED: Sodium Chloride 0.9% 0 ML ONE (14:12)
[2019-03-29] MEDS ORDERED: Bupivacaine HCl 0.5%/Epinephrine 1:200,000/PF 30 ml Vial ONE (14:12)
[2019-03-29] MEDS ORDERED: Fentanyl 100 MCG/2 ML VIAL ONE ×4 (14:15→17:43)
[2019-03-29] MEDS ORDERED: SODIUM CHLORIDE 0.9% I-THECAL SCH (14:30)
[2019-03-29] MEDS ORDERED: MORPHINE I-THECAL SCH (14:30)
[2019-03-29 14:35] LABS: ALT (SGPT) 7 U/L (8-55); AST (SGOT) 21 U/L (5-34); Alkaline Phosphatase 81 U/L (40-110); Anion Gap 12 mmol/L (10-20); BUN (Urea Nitrogen) 13 mg/dL (9.8-20.1); Bilirubin, Total 0.6 mg/dL (0.2-1.2); Calc. Creatinine Clearance 60 mL/min (70-130); Calcium 9.5 mg/dL (7.8-10.44); Carbon Dioxide 25 mmol/L (23-31); Chloride 108 mmol/L (98-107); Estimated GFR-MDRD 87; Globulin 3.2 g/dL (2.4-3.5); Glucose 85 mg/dL (83-110); Protein, Total 7.2 g/dL (6.0-8.3); Sodium 141 mmol/L (136-145)
[2019-03-29] MEDS ORDERED: MORPHINE 5 MG/10 ML PF VIAL I-THECAL SCH (15:15)
[2019-03-29] MEDS ORDERED: Ondansetron PF 4 MG/2 ML Vial IVP PRN (16:21)
[2019-03-29] MEDS ORDERED: hydrALAZINE 20 MG/ML VIAL SLOW IVP PRN (16:21)
[2019-03-29] MEDS ORDERED: Morphine 2 MG/ML SYRINGE SLOW IVP PRN (16:21)
[2019-03-29] MEDS ORDERED: Dextrose 50% Abboject 50 ML SYRINGE SLOW IVP PRN (16:21)
[2019-03-29] MEDS ORDERED: Dextrose 5% in Water 1,000 ML IV PRN (16:21)
[2019-03-29] MEDS ORDERED: Promethazine HCl 25 MG/ML VIAL IM PRN ×2 (16:21→16:43)
--- NOTE | 2019-03-29 16:32 | RAD ---
EXAM: XR Lumbar Spine 2 Or 3 View PROVIDED CLINICAL HISTORY: Pain pump insertion. COMPARISON: None FINDINGS/IMPRESSION: Single lateral fluoroscopic image of the thoracolumbar spine demonstrates vertebroplasty changes at m ultiple levels. A needle overlies the posterior aspect of the upper lumbar spine with a thin linear lead overlying the expected location of the central canal. Correlation with intraoperative findings i s recommended.
[2019-03-29] MEDS ORDERED: Promethazine HCl 25 MG/ML VIAL SLOW IVP PRN (16:43)
[2019-03-29] MEDS ORDERED: Ondansetron HCl/PF 4 MG/2 ML Vial IVP PRN (16:43)
[2019-03-29] MEDS: D5 1/2 NS w/20 mEq KCL 1,000 ML IV SCH ×2 (18:52→20:01)
[2019-03-29] MEDS: Famotidine 20 MG TAB PO SCH (20:00)
[2019-03-29] MEDS: Famotidine/PF 20 mg/2ml Vial SLOW IVP SCH (20:01)
--- NOTE | 2019-03-29 22:27 | OP ---
DATE OF PROCEDURE: 03/29/2019 PREOPERATIVE DIAGNOSES: 1. Chronic pain syndrome. 2. Post-laminectomy syndrome. 3. Lumbar radiculopathy. POSTOPERATIVE DIAGNOSES: 1. Chronic pain syndrome. 2. Post-laminectomy syndrome. 3. Lumbar radiculopathy. PROCEDURE PERFORMED: Implantation of programmable intrathecal pain pump. The pain pump catheter was placed by myself and the intrathecal pain pump itself was placed by Dr. Treviño. ESTIMATED BLOOD LOSS: Minimum. DESCRIPTION OF PROCEDURE: The patient was taken to the procedure room and placed under general anesthesia. She was placed in the left lateral decubitus position. Back and stomach were prepped and sterile drapes were applied. Using fluoroscopy, we located the L3-L4 interspace, anesthetized the skin, and made a vertical incision using a 10 blade scalpel after anesthetizing with 0.5% Marcaine with epinephrine. This was blunt dissected down to the fascia. We then inserted the supplied 14-gauge Touhy needle through the interspinous ligament. This was well engaged. We used lateral and AP views to confirm placement. We then gradually advanced it until we went in the intrathecal space. When we were in the intrathecal space, the stylet was removed and showed free-flowing CSF. We then inserted the catheter with stylet and advanced this easily under continuous fluoro up to T9. We then removed the needle and the stylet from the catheter. We placed an anchor over the catheter and placed it down to fascia. We secured this anchor to fascia with 2-0 silk suture x2. We then used a tunneling device to create a tunnel between the pocket that was made by Dr. Treviño and the catheter insertion site. Now, the catheter was brought to the abdominal pocket. Please refer to Dr. Treviño's note for this part of the procedure. The pump was primed by myself. The normal saline that came in the pump was removed completely. We then placed morphine 0.5 mg/mL preservative-free, 20 mL into the pump. This was then placed into the pocket by Dr. Treviño. The pump tubing was then primed. Incision was then closed using 2-0 Vicryl suture in simple interrupted fashion. We then used 3-0 Vicryl as a subcuticular stitch and Dermabond was placed over this. The patient was taken to the PACU under stable condition. Job ID: [id number]
[2019-03-30] MEDS: HYDROcodone/Acetaminophen 10/325 mg Tablet PO PRN ×2 (00:55→07:30)
[2019-03-30] MEDS: Famotidine 20 MG TAB PO SCH (08:36)
--- NOTE | 2019-03-30 09:10 | OP ---
DATE OF PROCEDURE: 03/29/2019 PREOPERATIVE DIAGNOSIS: Chronic pain syndrome. CO-SURGEON: Dr. Whalen. PROCEDURE PERFORMED: Placement of implantable programable intrathecal pain pump without placement of the catheter, that portion will be dictated by Dr. Whalen. INDICATIONS FOR PROCEDURE: The patient is an 84-year-old female, who has scoliosis and chronic hip pain, who has undergone a trial of intrathecal injection, which was successful, here for placement of continuous pain pump. FINDINGS: A pocket was created in the right lower quadrant of the abdominal wall. DESCRIPTION OF PROCEDURE: After informed consent was obtained, the patient was taken to the operating room, given general endotracheal anesthesia. She was placed in the left lateral decubitus position. Her back, flank, and abdomen were prepped and draped in usual fashion. Dr. Whalen placed the intrathecal catheter. Once successfully positioned, I injected local anesthesia with 0.5% Marcaine in the skin and subcutaneous tissue. A transverse right lower quadrant incision was performed. Subcu divided sharply. A pocket was created on the fascia utilizing electrocautery. Hemostasis achieved with electrocautery. Four 0 Prolene sutures were placed in 4 quadrants, then Dr. Whalen inserted the tunneling device, which we connected the 2 incisions. He inserted the catheter through the tunneling device. The tunneling device was then connected to the pain pump, which had already been pre-programed and filled. Once it was adequately filled and commenced operation, it was placed in its pocket with the tubing posterior to the pain pump and the sutures were placed through the eyelets on the pain pump to secure it to the abdominal wall. Again, hemostasis assured. The subcu was reapproximated with interrupted 2-0 Vicryl suture. The dermis was reapproximated with interrupted 3-0 Vicryl and the skin closed with a running subcuticular 4-0 Gallia. Steri-Strips and sterile bandage applied. The patient tolerated the procedure well, transferred to Recovery in good condition. Job ID: [id number]
[2019-03-30] MEDS: Famotidine/PF 20 mg/2ml Vial SLOW IVP SCH (11:09)
[2019-03-30] MEDS: D5 1/2 NS w/20 mEq KCL 1,000 ML IV SCH (11:10)
--- NOTE | 2019-03-30 11:35 | RAD ---
XR Abdomen 1 View/KUB CLINICAL INDICATION: Abdominal distention FINDINGS: Lung bases reveal mild patchy bibasilar densities. No free air. Moderate retained fecal material is seen within colon. Bowel gas pattern is nonobstructed. There is a radiopaque electronic device overlying the right lower quadrant. Dextroscoliosis and multilevel vertebroplasty of the imaged thoracolumbar spine. IMPRESSION: Moderate retained fecal material in the colon. Nonobstructed bowel gas pattern, with air noted throughout the colon..
--- NOTE | 2019-03-30 11:54 | RAD ---
THORACIC SPINE 2 VIEWS: Date: 03/30/19 HISTORY: Confirm catheter placement. FINDINGS: The bones are very demineralized. Multilevel vertebroplasty changes of the lower thoracic and lumbar spine are noted. There are also moderate compression changes of T5 and mild compression changes of T4 . I do not see a definite catheter on these films. IMPRESSION: Scoliosis and arthritic changes of the spine, and compression changes as described above. POS: TPC
[2019-03-30] MEDS ORDERED: FLU VACC TS2019-20(65YR UP)/PF 180 MCG/0.5 ML SYRINGE IM ONE ×2 (11:55→21:00)
[2019-03-30 12:16] VITALS: BP 123/79; TEMP 98.8
[2019-03-30] MEDS ORDERED: Ondansetron ODT 4 MG TAB PO SCH (13:15)
--- NOTE | 2019-03-30 16:30 | PRG ---
DATE OF SERVICE: SUBJECTIVE: The patient is resting in bed. No complaints of pain currently. Pain has been well controlled overnight with one hydrocodone by mouth. Morphine pump seems to be functioning. She has been up and used the bathroom. She had a bowel movement yesterday and has been passing gas. She is eating. She is voiding as well. She does have some stomach distention that she was complaining about; however, this is not painful. Denies fever, chills, or shortness of breath. OBJECTIVE: VITAL SIGNS: Temperature 99.1, pulse of 52, respirations 16, O2 saturation 97 on room air, and blood pressure 115/68. GENERAL: The patient in no acute distress. Alert and oriented x4. CHEST: Symmetric. Nonlabored respirations. GI: Positive bowel sounds. No tenderness to palpation deep and superficial throughout all four quadrants. Abdomen is soft. EXTREMITIES: Moving all extremities. ASSESSMENT AND PLAN: KUB was ordered due to subjective stomach distention, which was negative for ileus. She does have diffuse bowel gas pattern, hence will likely need to clear this. Therefore, she was instructed to take laxatives when she gets home. Catheter placement was confirmed with the x-ray and the catheter is intrathecal at the bottom of T9, which is appropriate and consistent with the operative note. The patient is safe to discharge home. She will follow up with me in one week. Job ID: [id number]
[2019-03-30] MEDS ORDERED: Prevnar 13-Val Conj/PF 0.5 ML SYRINGE IM ONE (21:00)
--- NOTE | 2019-03-31 08:33 | DIS ---
DATE OF ADMISSION: 03/29/2019 DATE OF DISCHARGE: 03/30/2019 DISCHARGE DIAGNOSIS: Chronic pain syndrome. PROCEDURES DURING ADMISSION: Placement of subcutaneous implantable programable intrathecal pain pump. HOSPITAL COURSE: The patient was admitted, taken to the operating room, where she had placement of the pain pump. Postoperatively, she has done well. She has had some mild nausea. She is tolerating diet well. She is discharged home on Zofran. She will follow up with Dr. Whalen in 2 weeks. Job ID: [id number]
--- NOTE | 2019-03-31 23:14 | EKG ---
Test Reason : PREOP Blood Pressure : / mmHG Vent. Rate : 071 BPM Atrial Rate : 071 BPM P-R Int : 200 ms QRS Dur : 108 ms QT Int : 428 ms P-R-T Axes : 102 011 -13 degrees QTc Int : 465 ms Normal sinus rhythm Incomplete right bundle branch block T wave abnormality, consider inferior ischemia Abnormal ECG When compared with ECG of 05-JUL-2018 11:08, Questionable change in QRS axis T wave inversion now evident in Inferior leads T wave inversion no longer evident in Anterior leads Confirmed by Missy GOMEZ ([id number]) on 03/31/2019 11:13:50 PM Referred By: LYNDSAY Confirmed By:Missy GOMEZ
== END 2019-03-30 14:20 | disposition home or self-care (01) | DRG 42 ==
LOC: SDC 13:15 → SURG A 17:34
PROVIDERS: ADMIT Surgery; ATTEND Surgery
PROC: 0JH83VZ Insertion of Infusion Pump into Abdomen Subcutaneous Tissue and Fascia, Percutaneous Approach (ICD-10-PCS; principal; 2019-03-29)
PROC: 00HU33Z Insertion of Infusion Device into Spinal Canal, Percutaneous Approach (ICD-10-PCS; 2019-03-29)
PROC: 3E0R3NZ Introduction of Analgesics, Hypnotics, Sedatives into Spinal Canal, Percutaneous Approach (ICD-10-PCS; 2019-03-29)
DX: G89.4 Chronic pain syndrome (principal); M54.18 Radiculopathy, sacral and sacrococcygeal region; M96.1 Postlaminectomy syndrome, not elsewhere classified; G43.909 Migraine, unspecified, not intractable, without status migrainosus; F32.9 Major depressive disorder, single episode, unspecified; F41.9 Anxiety disorder, unspecified; Z98.890 Other specified postprocedural states; Z90.710 Acquired absence of both cervix and uterus; Z79.899 Other long term (current) drug therapy
CPT/HCPCS: 36415; 72070; 72100; 74018; 76000; 80053; 85025; 90471; 90662; 90670; 93005; 93010; C1772; G0008; G0009; J0670; J0690; J1100; J1885; J2001; J2274; J2405; J2550; J2704; J3010; J3490; Q0162

== ENCOUNTER 2019-07-11 19:04 | Inpatient (IN) | payer MEDICARE ==
[2019-07-11 19:44] LABS: #Basophils 0.1 thou/uL (0.0-0.2); #Eosinphils 0.1 thou/uL (0.0-0.7); #Lymphocytes 2.3 thou/uL (1.20-3.40); #Monocytes 0.9 thou/uL (0.11-0.59); #Neutrophils 4.2 thou/uL (1.40-6.50); %Basophils 0.8 % (0.0-1.0); %Lymphocytes 30.2 % (21.0-51.0); %Monocytes 11.4 % (0.0-10.0); %Neutrophils 56.7 % (42.0-75.0); Hemoglobin 12.2 g/dL (12.0-16.0); Mean Corpuscular HGB CONC 31.9 g/dL (32.0-36.0); Mean Corpuscular Hemoglobin 28.8 pg (27.0-31.0); Mean Corpuscular Volume 90.3 fL (78.0-98.0); Mean Platelet Volume 7.6 fL (7.4-10.4); Platelet Count 241 thou/uL (130-400); RBC Distribution Width 11.7 % (11.5-14.5); Red Blood Cell (RBC) Count 4.24 mill/uL (4.20-5.40); White Blood Cell (WBC) Count 7.4 thou/uL (4.8-10.8)
[2019-07-11 20:06] LABS: ALT (SGPT) Less than 7 U/L (8-55); AST (SGOT) 22 U/L (5-34); Alkaline Phosphatase 67 U/L (40-110); Anion Gap 13 mmol/L (10-20); BUN (Urea Nitrogen) 13 mg/dL (9.8-20.1); Bilirubin, Total 0.5 mg/dL (0.2-1.2); Calc. Creatinine Clearance 0 mL/min (70-130); Calcium 9.1 mg/dL (7.8-10.44); Carbon Dioxide 25 mmol/L (23-31); Chloride 109 mmol/L (98-107); Estimated GFR-MDRD 87; Glucose 90 mg/dL (83-110); Potassium 3.6 mmol/L (3.5-5.1); Sodium 143 mmol/L (136-145)
--- NOTE | 2019-07-11 20:31 | RAD ---
CHEST ONE VIEW: Indication: History of altered mental status. Comparison: KUB 03-30-19 FINDINGS: Worsening pleural parenchymal opacity involving the left lung base which may reflect small pleural ef fusion or basilar atelectasis; however, a component of pneumonia or aspiration is not excluded. Mild cardiomegaly is present. Right lung is clear. No pneumothorax is present. No acute osseous abnormalit y is evident. IMPRESSION: 1. Worsening pleural parenchymal opacity involving the left lung base may reflect worsening pneumonia , subsegmental volume loss or aspiration. Clinical correlation. 2. Mild cardiomegaly without evidence of cardiac decompensation. POS: BH
--- NOTE | 2019-07-11 20:36 | CT ---
Exam: Head CT without contrast HISTORY: Delusions. Auditory hallucinations. Altered mental status. COMPARISON: none FINDINGS: Hemorrhage: No intraparenchymal hemorrhage or extra-axial hematoma. Brain parenchyma: Cortical kwon-white matter differentiation is preserved. No mass effect or midline shift. Basilar cisterns are patent. White matter hypodensities due to chronic small vessel ischemic change. 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 Ventricular system: Ventricles and sulci are patent and symmetric. Calvarium: Intact. Sinuses and mastoid air cells: Adequate aeration. IMPRESSION: No acute intracranial process.
[2019-07-11 21:49] LABS: Bacteria/HPF 4+ HPF (None Seen); Bilirubin Negative (Negative); Blood, Urine Negative (Negative); Clarity Clear (Clear); Glucose, Urine (Dipstick) Normal (Negative); Leukocyte 250 Leu/uL (Negative); Nitrite 2+ (Negative); Protein, Urine (Dipstick) Negative (Neg-Trace); Squamous Epithelial 0-3 HPF (0-3); Urobilinogen Normal mg/dL (Less than 2)
[2019-07-11] MEDS ORDERED: cefTRIAXone\\ROCEPHIN 1 GM VIAL ONE (22:32)
[2019-07-11] MEDS ORDERED: cefTRIAXone\\ROCEPHIN 2 GM VIAL ONE (22:32)
[2019-07-11] MEDS ORDERED: Ondansetron PF 4 MG/2 ML Vial IVP PRN (23:09)
[2019-07-11] MEDS ORDERED: Acetaminophen 650 MG Suppository PR PRN (23:09)
[2019-07-11] MEDS ORDERED: Acetaminophen 325 MG TAB PO PRN (23:09)
[2019-07-11] MEDS ORDERED: Bisacodyl 5 MG TAB PO PRN (23:09)
[2019-07-11] MEDS ORDERED: Melatonin 3 MG TAB PO PRN (23:33)
--- NOTE | 2019-07-11 23:48 | HP ---
PRIMARY CARE PROVIDER: Mauro Coyne MD CHIEF COMPLAINT: Altered mental status. HISTORY OF PRESENT ILLNESS: Ms. Blankenship is a pleasant 84-year-old lady, who was seen at [facility] on July 11, 2019. She has a history of chronic pain for which she is being treated with morphine pump by Dr. Melinda Whalen. A few days ago, she was noted to have lower extremity swelling and it was felt that the pain pump was the cause. She was given a prescription for what appears to be diuretics from her primary care provider in case the swelling got worse. The swelling did not get worse and she did not fill the prescription. To minimize the use of morphine, she was started on Lyrica three nights ago. She received two doses. Since yesterday morning, she has been confused. She has been seeing people, who are not in the house. She started moving things into the car around 4:00 a.m., thinking they were going somewhere. She also got ready today evening thinking that home people were coming to take care of her parents, who have been for a long time. Her daughter brought her to the emergency room because of the above symptoms. The patient denies any dysuria or increased frequency in urination. She denies any chest pain, nausea or vomiting. She denies any abdominal pain. She denies any fevers or chills. REVIEW OF SYSTEMS: All systems were reviewed and found to be negative except for the pertinent positives mentioned above. PAST MEDICAL HISTORY: Scoliosis, hypertension, osteoporosis, vertebral fracture, hiatal hernia, bowel obstruction. PAST SURGICAL HISTORY: Hemorrhoid surgery, hysterectomy, hernia repair, and stimulator implant in the spine. No past medical history of premature coronary artery disease. PSYCHIATRIC HISTORY: Depression. SOCIAL HISTORY: No history of tobacco use or recreational drug use. Rare alcohol use. CODE STATUS: I discussed her code status with her daughter. She is aware that by default the patient is full code and if her code status changes, she will notify the medical team. ALLERGIES: METHADONE. CURRENT MEDICATIONS: 1. Lyrica 50 mg daily. 2. Alprazolam 2 mg at bedtime. 3. Mirtazapine 15 mg at bedtime. PHYSICAL EXAMINATION: GENERAL: On examination, Ms. Blankenship is awake and alert, not in acute distress. VITAL SIGNS: Blood pressure is 140/74, pulse 60, respiratory rate 12, and oxygen saturation 98% on room air. She is afebrile. EYES: No scleral icterus. No conjunctival pallor. ENT: Moist mucosal membranes. No oropharyngeal erythema or exudates. NECK: Supple, nontender. Trachea is midline. RESPIRATORY: Accessory muscles of breathing are not active. Chest wall movements are symmetric bilaterally. LUNGS: Clear to auscultation without wheeze, rhonchi, or crepitations. CARDIOVASCULAR: S1 and S2 are heard, regular. Peripheral pulses palpable. ABDOMEN: Soft, nontender. Bowel sounds are heard. NEUROLOGIC: Cranial nerves 2 through 12 are intact. No focal motor or sensory deficits. Deep tendon reflexes 2+. MUSCULOSKELETAL: Trace bilateral lower extremity edema. Power is 5/5 in all 4 extremities. SKIN: No rashes. LYMPHATIC: No cervical lymphadenopathy. PSYCHIATRIC: Normal mood, normal affect. The patient is oriented to person, place, and time. LABORATORY DATA: Ms. Blankenship' labs and investigations were reviewed. EKG showed sinus bradycardia, no ST changes to suggest an acute coronary syndrome. Noncontrast CT scan of the brain did not show any acute intracranial abnormality. Chest x-ray showed worsening pleural parenchymal opacity involving the left lung base and may reflect worsening pneumonia. She also had mild cardiomegaly without evidence of cardiac decompensation. She has an unremarkable CBC, normal sodium, normal potassium, elevated BNP of 189.4, and normal LFTs. Troponin I is normal. Urinalysis is positive for nitrite and leukocyte esterase. ASSESSMENT AND PLAN: Ms. Blankenship is a pleasant 84-year-old lady, who was seen at [facility] on July 11, 2019. Her problem list includes: 1. Acute metabolic encephalopathy: Etiology is unclear, could be a combination of infection in the form of urinary tract infection and suspected pneumonia superimposed on recent initiation of Lyrica treatment. She will be admitted to the hospital for further management. Lyrica will be on hold. She has received ceftriaxone. We will continue ceftriaxone and start azithromycin as well. We will follow urine cultures and blood cultures. 2. Urinary tract infection: Continue ceftriaxone, follow urine cultures. 3. Pneumonia: Suspected. Continue ceftriaxone and add azithromycin, follow blood cultures. 4. Chronic pain: Currently, the patient does not appear to be in pain, but she is resting. If she has exacerbations, will need to consult Pain Service during the daytime. 5. History of hypertension: Monitor vital signs, initiate antihypertensives as needed. Many thanks for allowing me to participate in your patient's care. Please feel free to contact me with any questions or concerns. LEVEL OF RISK: Moderate. LEVEL OF COMPLEXITY: Moderate. Job ID: [id number]
[2019-07-12 00:36] VITALS: BMI 22.5
[2019-07-12] MEDS: Azithromycin 500 MG in Sodium Chloride 0.9% 250 ML 250 ML IVPB SCH (01:24)
[2019-07-12 05:12] LABS: #Basophils 0.1 thou/uL (0.0-0.2); #Eosinphils 0.2 thou/uL (0.0-0.7); #Lymphocytes 2.8 thou/uL (1.20-3.40); #Monocytes 0.9 thou/uL (0.11-0.59); #Neutrophils 3.8 thou/uL (1.40-6.50); %Basophils 1.1 % (0.0-1.0); %Monocytes 11.9 % (0.0-10.0); %Neutrophils 48.9 % (42.0-75.0); Hemoglobin 11.1 g/dL (12.0-16.0); Mean Corpuscular HGB CONC 31.7 g/dL (32.0-36.0); Mean Corpuscular Hemoglobin 28.6 pg (27.0-31.0); Mean Corpuscular Volume 90.2 fL (78.0-98.0); Mean Platelet Volume 7.8 fL (7.4-10.4); Platelet Count 226 thou/uL (130-400); RBC Distribution Width 11.8 % (11.5-14.5); Red Blood Cell (RBC) Count 3.89 mill/uL (4.20-5.40); White Blood Cell (WBC) Count 7.7 thou/uL (4.8-10.8)
[2019-07-12 05:31] LABS: Anion Gap 10 mmol/L (10-20); BUN (Urea Nitrogen) 12 mg/dL (9.8-20.1); Calc. Creatinine Clearance 78 mL/min (70-130); Calcium 8.3 mg/dL (7.8-10.44); Carbon Dioxide 25 mmol/L (23-31); Chloride 111 mmol/L (98-107); Estimated GFR-MDRD Greater than 90; Glucose 88 mg/dL (83-110); Potassium 3.5 mmol/L (3.5-5.1); Sodium 142 mmol/L (136-145)
[2019-07-12] MEDS: Enoxaparin Sodium 40 MG/0.4 ML SYRINGE SC SCH (09:44)
--- NOTE | 2019-07-12 13:48 | PDOC.HOSPP ---
- Subjective Encounter Date: 07/12/19 Encounter Time: 08:30 Subjective: sleepy but awakens easily, responds to verbal questions daughter at bedside no sob or abd pain or nausea - Objective Vital Signs & Weight: Vital Signs (12 hours) Temp Pulse Resp BP Pulse Ox 07/12/19 12:00 59 L 18 106/69 95 07/12/19 08:00 95 07/12/19 07:33 98.0 F 66 20 137/79 95 07/12/19 04:00 97.9 F 65 17 134/82 95 Weight Weight 143 lb 14.4 oz Result Diagrams: 07/12/19 04:52 07/12/19 04:52 Hospitalist ROS - Medication Medications: Active Medications Generic Name Dose Route Start Last Admin Trade Name Freq PRN Reason Stop Dose Admin Enoxaparin Sodium 40 mg 07/12/19 09:00 07/12/19 09:44 Lovenox SC 40 mg 0900 SUJATHA Administration Azithromycin 500 mg/ Sodium 250 mls @ 250 mls/hr 07/11/19 23:59 07/12/19 01: 24 Chloride IVPB 250 mls Q24HR SUJATHA Administration - Exam General Appearance: awake alert Eye: PERRL, anicteric sclera ENT: no oropharyngeal lesions, moist mucosa Neck: supple, no JVD Heart: RRR, no murmur Respiratory: no wheezes, no rales Gastrointestinal: soft, non-tender, non-distended, normal bowel sounds Extremities: no cyanosis, no edema Neurological: cranial nerve grossly intact, no focal deficits Hosp A/P (1) Acute metabolic encephalopathy Code(s): G93.41 - METABOLIC ENCEPHALOPATHY Status: Acute (2) UTI (urinary tract infection) Status: Acute Qualifiers: Urinary tract infection type: acute cystitis Hematuria presence: without hematuria Qualified Code(s): N30.00 - Acute cystitis without hematuria (3) PNA (pneumonia) Code(s): J18.9 - PNEUMONIA, UNSPECIFIED ORGANISM Status: Suspected Qualifiers: Pneumonia type: due to unspecified organism Laterality: left Lung location: lower lobe of lung Qualified Code(s): J18.9 - Pneumonia, unspecified organism (4) Scoliosis Status: Chronic Qualifiers: Scoliosis type: unspecified scoliosis Spinal region: cervicothoracic Qualified Code(s): M41.9 - Scoliosis, unspecified (5) Chronic pain Code(s): G89.29 - OTHER CHRONIC PAIN Status: Chronic - Plan is on ceftriaxone and zithromax continue iv fluids, encourage po intake, is not a morning person off lyrica, has morphine pump (h/o scoliosis with chronic pain in left leg and back), sees PT/OT eval and mobilize as tolerated d/w daughter at bedside
[2019-07-12] MEDS: Mirtazapine 15 MG TAB PO SCH ×2 (20:24→20:28)
[2019-07-12] MEDS ORDERED: cefTRIAXone\\ROCEPHIN 1 GM in Sodium Chloride 0.9% 100 ML IVPB SCH (23:00)
[2019-07-13] MEDS: Azithromycin 500 MG in Sodium Chloride 0.9% 250 ML 250 ML IVPB SCH (00:20)
[2019-07-13] MEDS: Enoxaparin Sodium 40 MG/0.4 ML SYRINGE SC SCH (09:39)
--- NOTE | 2019-07-13 12:16 | PDOC.HOSPP ---
- Subjective Encounter Date: 07/13/19 Encounter Time: 07:30 Subjective: awake, responds well to verbal stimuli is eating well has amb with PT - Objective Vital Signs & Weight: Vital Signs (12 hours) Temp Pulse Resp BP Pulse Ox 07/13/19 09:40 93 L 07/13/19 08:00 97.8 F 60 18 121/69 93 L Weight Weight 143 lb 14.4 oz I&O: 07/12/19 07/13/19 07/14/19 06:59 06:59 06:59 Intake Total 1350 Balance 1350 Result Diagrams: 07/12/19 04:52 07/12/19 04:52 Hospitalist ROS - Medication Medications: Active Medications Generic Name Dose Route Start Last Admin Trade Name Freq PRN Reason Stop Dose Admin Acetaminophen 650 mg 07/11/19 23:09 07/12/19 17:41 Tylenol PO 650 mg Q4H PRN Administration Headache/Fever/Mild Pain (1-3) Enoxaparin Sodium 40 mg 07/12/19 09:00 07/13/19 09:39 Lovenox SC 40 mg 0900 SUJATHA Administration Mirtazapine 15 mg 07/12/19 21:00 07/12/19 20:28 Remeron PO Not Given HS SUJATHA - Exam General Appearance: awake alert Eye: PERRL, anicteric sclera ENT: no oropharyngeal lesions, moist mucosa Neck: supple, no JVD Heart: RRR, no murmur Respiratory: no wheezes, no rales Gastrointestinal: soft, non-tender, non-distended, normal bowel sounds Extremities: no cyanosis, no edema Neurological: cranial nerve grossly intact, no focal deficits Psychiatric: normal affect, A&O x 3 Hosp A/P (1) Acute metabolic encephalopathy Code(s): G93.41 - METABOLIC ENCEPHALOPATHY Status: Resolved (2) UTI (urinary tract infection) Status: Acute Qualifiers: Urinary tract infection type: acute cystitis Hematuria presence: without hematuria Qualified Code(s): N30.00 - Acute cystitis without hematuria (3) PNA (pneumonia) Code(s): J18.9 - PNEUMONIA, UNSPECIFIED ORGANISM Status: Suspected Qualifiers: Pneumonia type: due to unspecified organism Laterality: left Lung location: lower lobe of lung Qualified Code(s): J18.9 - Pneumonia, unspecified organism (4) Scoliosis Status: Chronic Qualifiers: Scoliosis type: unspecified scoliosis Spinal region: cervicothoracic Qualified Code(s): M41.9 - Scoliosis, unspecified (5) Chronic pain Code(s): G89.29 - OTHER CHRONIC PAIN Status: Chronic - Plan levaquin oral encourage po intake off lyrica, has morphine pump (h/o scoliosis with chronic pain in left leg and back), sees PT/OT eval and mobilize as tolerated d/w daughter at bedside dc plan in am will need HH with PT and nursing on discharge
--- NOTE | 2019-07-13 13:11 | PQF ---
REJI REYES, ALVAREZ RAMÍREZ MD [id number] CLINICAL DOCUMENTATION IMPROVEMENT CLARIFICATION FORM: ICD-10 Updated PLEASE DO AN ADDENDUM TO THE PROGRESS NOTE WITH ANY DOCUMENTATION UPDATES OR ADDITIONS AND CARRY THROUGH TO DC SUMMARY. THANK YOU. DATE: 07/13/2019 ATTN: DR. Toshia FOSTER Please exercise your independent, professional judgment in responding to the clarification form. Clinical indicators are provided on the bottom of this form for your review. Please check appropriate box(s): [ ] Empirically treating Gram Negative Pneumonia [x ] Simple Pneumonia [ ] Pneumonia of unknown etiology [ ] Other diagnosis [ ] Unable to determine In addition, please specify: Present on Admission (POA): [ x ] Yes [ ] No [ ] Unable to determine For continuity of documentation, please document condition throughout progress notes and discharge summary. Thank You. CLINICAL INDICATORS - SIGNS / SYMPTOMS / LABS / RESULTS AND LOCATION IN MR 07/11 CXR IMPRESSION: WORSENING PLEURAL PARENCHYMAL OPACITY INVOLVING THE LEFT LUNG BASE MAY REFLECT WORSENING PNEUMONIA, SUBSEGMENTAL VOLUME LOSS OR ASPIRATION. 07/11 H&P (DESIREE) A/P: 3). PNEUMONIA SUSPECTED. CONTINUE CEFTRIAXONE AND ADD AZITHROMYCIN, FOLLOW BLOOD CULTURES. 07/12 PN ( TESSADEESHROHINI) A/P: 3). PNEUMONIA, SUSPECTED, DUE TO UNSPECIFIED ORGANISM, LEFT LOWER LOBE OF LUNG. PLAN: IS ON CEFTRIAXONE AND ZITHROMAX 07/13 PN ( JAGADEESHAN) A/P: 3). PNEUMONIA, SUSPECTED, DUE TO UNSPECIFIED ORGANISM, LEFT LOWER LOBE OF LUNG. PLAN: LEVAQUIN ORAL RISK: ADVANCED AGE (84), ACUTE METABOLIC ENCEPHALOPATHY , UTI (H&P/ DESIREE) 07/11 TREATMENTS: CXR 07/11 ZITHROMAX IV ( 07/11 - 07/12) LEVAQUIN PO ( 07/13-PRESENT) THANK YOU! LAST (This form is maintained as a part of the permanent medical record) 2014 [employer]. All Rights Reserved [email or web address] [phone] MTDD
[2019-07-13] MEDS: Mirtazapine 15 MG TAB PO SCH (20:20)
[2019-07-14 07:44] VITALS: BP 121/65; TEMP 97.5
[2019-07-14] MEDS: Enoxaparin Sodium 40 MG/0.4 ML SYRINGE SC SCH (08:09)
--- NOTE | 2019-07-14 18:07 | DIS ---
DATE OF ADMISSION: 07/11/2019 DATE OF DISCHARGE: 07/14/2019 DISCHARGE DISPOSITION: Home. PRIMARY DISCHARGE DIAGNOSES: Acute metabolic encephalopathy secondary to urinary tract infection and mild pneumonia, community-acquired, resolved and history of chronic pain with scoliosis and back pain. PROCEDURES DONE DURING HOSPITALIZATION: CT brain done showed no acute intracranial abnormality. Chest x-ray done showed pleural parenchymal opacity in the left lung base when compared to prior x-ray, mild cardiomegaly. Urine cultures grew E coli sensitive to all antibiotics. Blood cultures x2, no growth. H and H 11 and 35, platelet count 226, white count of 7. BUN 12, creatinine 0.5. BNP 189. Troponin is negative. DISCHARGE MEDICATIONS: 1. Levaquin 500 mg p.o. daily for another 4 days. 2. Remeron 15 mg p.o. q.h.s. 3. MiraLAX 17 g daily p.r.n. 4. Multivitamin one tablet once daily. 5. Xanax 0.25 mg p.o. daily p.r.n. ALLERGIES: TO METHADONE. PLEASE NOTE, THE PATIENT HAS A MORPHINE PUMP. DISCHARGE PLAN: The patient needs to follow up with her primary care physician , Dr. Mauro Coyne, in 1 week or family is trying to switch over to Dr. Johansen per daughter, in which case, she has to see her new physician in 1 week. BRIEF COURSE DURING HOSPITALIZATION: The patient initially was brought to emergency room after the patient was confused at home. She had also started Lyrica in plans of reducing her morphine usage via pain pump in her abdomen. She is seeing Dr. Whalen for the same. She was also found to have had urinary tract infection and questionable pneumonia in the left lung. In view of this history, the patient was admitted to medical floor. She was gently hydrated along with IV antibiotics. The patient has responded well to above measures. Her cognition completely came back to her baseline. Prior to discharge, she is ambulating nearly 180 feet with physical therapy. The family have declined home health. Her urine culture grew E coli, which was pansensitive. She has been prescribed Levaquin for another 4 days daily. She is hemodynamically stable and will be shortly discharged home. Please note I have seen and examined the patient on the day of discharge. Job ID: [id number] [facility]
== END 2019-07-14 12:58 | disposition home or self-care (01) | DRG 193 ==
LOC: ERS 19:04 → T4-A 22:55
PROVIDERS: ADMIT Internal Medicine; ATTEND Internal Medicine
DX: J18.9 Pneumonia, unspecified organism (principal); G93.41 Metabolic encephalopathy; N39.0 Urinary tract infection, site not specified; G89.29 Other chronic pain; M41.9 Scoliosis, unspecified; I10 Essential (primary) hypertension; M81.0 Age-related osteoporosis without current pathological fracture; Z90.710 Acquired absence of both cervix and uterus; F32.9 Major depressive disorder, single episode, unspecified; Z88.8 Allergy status to other drugs, medicaments and biological substances; B96.20 Unspecified Escherichia coli [E. coli] as the cause of diseases classified elsewhere; T42.6X5A Adverse effect of other antiepileptic and sedative-hypnotic drugs, initial encounter
CPT/HCPCS: 36415; 70450; 71045; 80048; 80053; 81003; 81015; 83880; 84484; 85025; 87040; 87077; 87086; 87186; 93005; 96374; A4353; J0456; J0696; J1650; J3490; J7050

== ENCOUNTER 2020-08-01 15:20 | Outpatient (CLI) | payer MEDICARE ==
--- NOTE | 2020-08-01 16:12 | RAD ---
EXAM: Chest 2 views: HISTORY: Left chest wall pain after fall 2 weeks ago COMPARISON: 02/19/2020 and CTA chest 05/16/2020 FINDINGS: There is an enlarged but stable cardiomediastinal silhouette. There is stable bilateral pulmonary va scular enlargement. Increased interstitial markings are present. A calcified granuloma is seen in the left lung base. Opacity in the left lung base may represent atelectasis or an infiltrate. No pneu mothorax. Hardware seen in the proximal left humerus. IMPRESSION: Left basilar atelectasis versus infiltrate
--- NOTE | 2020-08-01 16:14 | RAD ---
EXAM: 2 views of the sternum HISTORY: Sternal pain COMPARISON: None FINDINGS: 2 views of the sternum shows no evidence of displaced sternal fracture. The sternoclavicula r joints appear symmetric. No osseous lesions are seen in the sternum. IMPRESSION: Unremarkable exam
== END 2020-08-01 15:21 | disposition home or self-care (01) ==
LOC: BICRAD 15:20
PROVIDERS: ATTEND Family Medicine
DX: R07.89 Other chest pain (principal)
CPT/HCPCS: 71046; 71120

== ENCOUNTER 2022-02-21 14:23 | Inpatient (IN) | payer MEDICARE ==
[2022-02-21] MEDS ORDERED: Dextrose 5% in Water 1,000 ML IV PRN (18:13)
[2022-02-21] MEDS ORDERED: Ondansetron PF 4 MG/2 ML Vial IVP PRN (18:13)
[2022-02-21] MEDS ORDERED: hydrALAZINE 20 MG/ML VIAL SLOW IVP PRN (18:13)
[2022-02-21] MEDS ORDERED: Morphine 4 MG/ML VIAL SLOW IVP PRN (18:13)
[2022-02-21] MEDS ORDERED: Dextrose 50% Abboject 50 ML SYRINGE SLOW IVP PRN (18:13)
[2022-02-21] MEDS ORDERED: Sodium Chloride 0.9% 1,000 ML IV SCH (18:15)
[2022-02-21] MEDS ORDERED: traMADol HCl 50 MG TAB PO PRN (18:15)
[2022-02-21] MEDS ORDERED: Cyclobenzaprine 10 MG TAB PO PRN (18:15)
[2022-02-21] MEDS ORDERED: Acetaminophen 500 MG TAB PO SCH (18:30)
[2022-02-21] MEDS ORDERED: traMADol HCl 50 MG TAB PO SCH (18:45)
[2022-02-21] MEDS: Pregabalin 75 MG CAP PO SCH (19:33)
[2022-02-21] MEDS: Famotidine 20 MG TAB PO SCH (19:34)
[2022-02-21] MEDS: Senokot S 8.6-50 MG TAB PO SCH (19:34)
[2022-02-21 21:04] LABS: SARS-CoV-2 NAA Rapid Test Not Detected (NotDetected)
[2022-02-21 21:27] VITALS: BMI 22.6
[2022-02-21] MEDS: Ibuprofen 200 MG TAB PO SCH (22:23)
[2022-02-21 22:41] LABS: Bilirubin Negative (Negative); Blood, Urine Negative (Negative); Clarity Clear (Clear); Glucose, Urine (Dipstick) Normal (Negative); Ketone, Urine Negative (Negative); Leukocyte Negative Leu/uL (Negative); Nitrite Negative (Negative); Protein, Urine (Dipstick) Negative (Neg-Trace); Specific Gravity, Urine 1.044 (1.002-1.036); Urobilinogen Normal mg/dL (Less than 2)
[2022-02-22] MEDS: Acetaminophen 500 MG TAB PO SCH ×5 (00:22→23:36)
[2022-02-22] MEDS: traMADol HCl 50 MG TAB PO SCH ×5 (00:26→23:36)
[2022-02-22] MEDS: Ibuprofen 200 MG TAB PO SCH ×3 (05:18→21:12)
[2022-02-22 06:11] LABS: #Basophils 0.1 thou/uL (0.0-0.2); #Eosinphils 0.4 thou/uL (0.0-0.7); #Lymphocytes 2.1 thou/uL (1.20-3.40); #Monocytes 0.8 thou/uL (0.11-0.59); #Neutrophils 8.9 thou/uL (1.40-6.50); %Basophils 0.5 % (0.0-1.0); %Eosinophils 2.9 % (0.0-10.0); %Lymphocytes 17.3 % (21.0-51.0); %Monocytes 6.4 % (0.0-10.0); Hemoglobin 12.2 g/dL (12.0-16.0); Mean Corpuscular HGB CONC 32.1 g/dL (32.0-36.0); Mean Corpuscular Hemoglobin 30.1 pg (27.0-31.0); Mean Corpuscular Volume 93.7 fL (78.0-98.0); Mean Platelet Volume 8.1 fL (7.4-10.4); Platelet Count 186 thou/uL (130-400); RBC Distribution Width 12.9 % (11.5-14.5); Red Blood Cell (RBC) Count 4.05 mill/uL (4.20-5.40); White Blood Cell (WBC) Count 12.2 thou/uL (4.8-10.8)
[2022-02-22 06:30] LABS: Anion Gap 14 mmol/L (10-20); BUN (Urea Nitrogen) 25 mg/dL (9.8-20.1); Calc. Creatinine Clearance 52 mL/min (70-130); Carbon Dioxide 21 mmol/L (23-31); Chloride 111 mmol/L (98-107); Estimated GFR 74; Glucose 113 mg/dL (83-110); Magnesium 1.9 mg/dL (1.6-2.6); Phosphorus 3.1 mg/dL (2.3-4.7); Potassium 3.8 mmol/L (3.5-5.1); Sodium 142 mmol/L (136-145)
[2022-02-22] MEDS ORDERED: Clindamycin/D5W 900 MG in Premix Bag 1 BAG IVPB SCH (08:15)
[2022-02-22] MEDS ORDERED: Promethazine HCl 25 MG/ML VIAL IVPB PRN (09:42)
[2022-02-22] MEDS ORDERED: Ondansetron HCl/PF 4 MG/2 ML Vial IVP PRN (09:42)
[2022-02-22] MEDS ORDERED: Clindamycin/D5W 900 mg/50 ml Premix Bag ONE (09:42)
[2022-02-22] MEDS ORDERED: Promethazine HCl 25 MG/ML VIAL IM PRN (09:42)
[2022-02-22] MEDS ORDERED: Levofloxacin 500 mg/D5W 100 ml Premix Bag ONE (09:42)
[2022-02-22] MEDS: Polyethylene Glycol 3350 17 GM Packet PO SCH (09:46)
[2022-02-22] MEDS: Famotidine 20 MG TAB PO SCH ×2 (09:46→21:13)
[2022-02-22] MEDS: Senokot S 8.6-50 MG TAB PO SCH ×2 (09:46→21:12)
[2022-02-22] MEDS: Pregabalin 75 MG CAP PO SCH ×2 (09:46→21:12)
[2022-02-22] MEDS ORDERED: fentaNYL Citrate/PF 100 MCG/2 ML SYRINGE ONE (09:59)
[2022-02-22] MEDS ORDERED: Fentanyl 100 MCG/2 ML VIAL ONE (12:08)
[2022-02-22] MEDS: Clindamycin/D5W 900 MG in Premix Bag 1 BAG IVPB SCH ×2 (15:04→21:11)
[2022-02-22] MEDS ORDERED: Hydrocortisone Sod Succ/PF 100 mg/2 ml Vial IVP SCH (15:30)
[2022-02-22] MEDS ORDERED: Dexamethasone 20 MG/5 ML VIAL ONE (15:52)
[2022-02-22] MEDS ORDERED: PROPOFOL 200 MG/20 ML VIAL ONE (15:52)
[2022-02-22] MEDS ORDERED: Glycopyrrolate 0.2 MG/ML 5 ML SYRINGE ONE (15:52)
[2022-02-22] MEDS ORDERED: Ondansetron PF 4 MG/2 ML Vial ONE (15:52)
[2022-02-22] MEDS ORDERED: Rocuronium Bromide 10 MG/ML (10ML VIAL) ONE (15:52)
[2022-02-22] MEDS ORDERED: NEOSTIGMINE 3 MG/3 ML SYR 3 MG/3 ML SYRINGE ONE (15:52)
[2022-02-22] MEDS ORDERED: Lidocaine 1% MPF 2 ML VIAL ONE (15:52)
[2022-02-22] MEDS: Hydrocortisone Sod Succ/PF 100 mg/2 ml Vial IVP SCH (21:11)
[2022-02-22] MEDS: Melatonin 3 MG TAB PO SCH (21:12)
[2022-02-23] MEDS ORDERED: Sodium Chloride 0.9% 1,000 ML IV SCH (05:00)
[2022-02-23] MEDS: traMADol HCl 50 MG TAB PO SCH (05:04)
[2022-02-23] MEDS: Hydrocortisone Sod Succ/PF 100 mg/2 ml Vial IVP SCH ×3 (05:14→22:05)
[2022-02-23] MEDS: Acetaminophen 500 MG TAB PO SCH (05:14)
[2022-02-23] MEDS: Ibuprofen 200 MG TAB PO SCH ×3 (05:15→23:09)
[2022-02-23 06:03] LABS: #Lymphocytes 1.4 thou/uL (1.20-3.40); #Monocytes 0.9 thou/uL (0.11-0.59); %Basophils 0.1 % (0.0-1.0); %Eosinophils 0.1 % (0.0-10.0); %Lymphocytes 9.1 % (21.0-51.0); %Neutrophils 84.8 % (42.0-75.0); Hemoglobin 10.4 g/dL (12.0-16.0); Mean Corpuscular HGB CONC 32.4 g/dL (32.0-36.0); Mean Corpuscular Hemoglobin 30.3 pg (27.0-31.0); Mean Corpuscular Volume 93.8 fL (78.0-98.0); Mean Platelet Volume 8.2 fL (7.4-10.4); Platelet Count 161 thou/uL (130-400); RBC Distribution Width 12.7 % (11.5-14.5); Red Blood Cell (RBC) Count 3.44 mill/uL (4.20-5.40); White Blood Cell (WBC) Count 15.3 thou/uL (4.8-10.8)
[2022-02-23 06:29] LABS: Anion Gap 16 mmol/L (10-20); BUN (Urea Nitrogen) 21 mg/dL (9.8-20.1); Calc. Creatinine Clearance 47 mL/min (70-130); Calcium 8.4 mg/dL (7.8-10.44); Carbon Dioxide 19 mmol/L (23-31); Chloride 107 mmol/L (98-107); Estimated GFR 66; Glucose 165 mg/dL (83-110); Magnesium 1.7 mg/dL (1.6-2.6); Phosphorus 2.3 mg/dL (2.3-4.7); Sodium 138 mmol/L (136-145)
[2022-02-23] MEDS ORDERED: Magnesium 2 GM/50 ML(in water) 2 GM in Premix Bag 1 BAG IVPB SCH (07:30)
[2022-02-23] MEDS: Famotidine 20 MG TAB PO SCH ×2 (09:55→19:49)
[2022-02-23] MEDS: Pregabalin 75 MG CAP PO SCH ×2 (09:55→19:48)
[2022-02-23] MEDS: Senokot S 8.6-50 MG TAB PO SCH ×2 (09:55→19:49)
[2022-02-23] MEDS: Ferrous Sulfate 325 MG TAB PO SCH ×2 (09:56→17:42)
[2022-02-23] MEDS: Aspirin 81 mg Enteric Coated Tablet PO SCH ×2 (09:56→19:49)
[2022-02-23] MEDS: Polyethylene Glycol 3350 17 GM Packet PO SCH (09:56)
[2022-02-23] MEDS: Ascorbic Acid 500 mg Chewable Tablet PO SCH ×2 (09:56→19:49)
[2022-02-23] MEDS: Acetaminophen 325 MG TAB PO SCH ×3 (12:19→23:10)
[2022-02-23] MEDS: Melatonin 3 MG TAB PO SCH (19:49)
[2022-02-24] MEDS: Hydrocortisone Sod Succ/PF 100 mg/2 ml Vial IVP SCH ×3 (05:05→22:07)
[2022-02-24] MEDS: Acetaminophen 325 MG TAB PO SCH ×4 (05:15→23:28)
[2022-02-24] MEDS: Ibuprofen 200 MG TAB PO SCH ×3 (05:15→22:07)
[2022-02-24 06:13] LABS: #Eosinphils 0.1 thou/uL (0.0-0.7); #Lymphocytes 1.8 thou/uL (1.20-3.40); #Monocytes 1.1 thou/uL (0.11-0.59); #Neutrophils 12.1 thou/uL (1.40-6.50); %Basophils 0.1 % (0.0-1.0); %Eosinophils 0.7 % (0.0-10.0); %Lymphocytes 11.9 % (21.0-51.0); %Monocytes 7.3 % (0.0-10.0); Hemoglobin 9.8 g/dL (12.0-16.0); Mean Corpuscular HGB CONC 33.1 g/dL (32.0-36.0); Mean Corpuscular Hemoglobin 31.1 pg (27.0-31.0); Mean Corpuscular Volume 93.9 fL (78.0-98.0); Mean Platelet Volume 8.2 fL (7.4-10.4); Platelet Count 155 thou/uL (130-400); RBC Distribution Width 12.9 % (11.5-14.5); Red Blood Cell (RBC) Count 3.16 mill/uL (4.20-5.40); White Blood Cell (WBC) Count 15.1 thou/uL (4.8-10.8)
[2022-02-24 06:40] LABS: Anion Gap 13 mmol/L (10-20); BUN (Urea Nitrogen) 20 mg/dL (9.8-20.1); Calc. Creatinine Clearance 60 mL/min (70-130); Calcium 8.4 mg/dL (7.8-10.44); Carbon Dioxide 22 mmol/L (23-31); Chloride 111 mmol/L (98-107); Estimated GFR 85; Glucose 119 mg/dL (83-110); Magnesium 2.2 mg/dL (1.6-2.6); Phosphorus 2.5 mg/dL (2.3-4.7); Potassium 4.6 mmol/L (3.5-5.1); Sodium 141 mmol/L (136-145)
[2022-02-24] MEDS ORDERED: PHOS-NAK 1 PKT PACK PO SCH (09:00)
[2022-02-24] MEDS ORDERED: traMADol HCl 50 MG TAB PO PRN (09:02)
[2022-02-24] MEDS: Polyethylene Glycol 3350 17 GM Packet PO SCH (09:52)
[2022-02-24] MEDS: Ascorbic Acid 500 mg Chewable Tablet PO SCH ×2 (09:52→20:01)
[2022-02-24] MEDS: Senokot S 8.6-50 MG TAB PO SCH ×2 (09:53→20:03)
[2022-02-24] MEDS: Ferrous Sulfate 325 MG TAB PO SCH ×2 (09:53→18:04)
[2022-02-24] MEDS: Famotidine 20 MG TAB PO SCH ×2 (09:53→20:02)
[2022-02-24] MEDS: Aspirin 81 mg Enteric Coated Tablet PO SCH ×2 (09:53→20:01)
[2022-02-24] MEDS: Pregabalin 75 MG CAP PO SCH ×2 (09:53→20:02)
[2022-02-24] MEDS: Melatonin 3 MG TAB PO SCH (20:01)
[2022-02-25 05:49] LABS: #Eosinphils 0.2 thou/uL (0.0-0.7); #Neutrophils 8.7 thou/uL (1.40-6.50); %Basophils 0.3 % (0.0-1.0); %Eosinophils 2.1 % (0.0-10.0); %Lymphocytes 16.9 % (21.0-51.0); %Monocytes 8.1 % (0.0-10.0); %Neutrophils 72.6 % (42.0-75.0); Hemoglobin 9.8 g/dL (12.0-16.0); Mean Corpuscular HGB CONC 32.8 g/dL (32.0-36.0); Mean Corpuscular Hemoglobin 30.6 pg (27.0-31.0); Mean Corpuscular Volume 93.2 fL (78.0-98.0); Mean Platelet Volume 8.1 fL (7.4-10.4); Platelet Count 191 thou/uL (130-400); RBC Distribution Width 12.7 % (11.5-14.5); Red Blood Cell (RBC) Count 3.21 mill/uL (4.20-5.40); White Blood Cell (WBC) Count 11.9 thou/uL (4.8-10.8)
[2022-02-25 06:02] LABS: Anion Gap 14 mmol/L (10-20); BUN (Urea Nitrogen) 18 mg/dL (9.8-20.1); Calc. Creatinine Clearance 64 mL/min (70-130); Calcium 8.2 mg/dL (7.8-10.44); Carbon Dioxide 22 mmol/L (23-31); Chloride 112 mmol/L (98-107); Estimated GFR 86; Glucose 105 mg/dL (83-110); Magnesium 1.8 mg/dL (1.6-2.6); Phosphorus 2.7 mg/dL (2.3-4.7); Sodium 144 mmol/L (136-145)
[2022-02-25 06:06] LABS: Troponin I 0.053 ng/mL (< 0.028)
[2022-02-25] MEDS: Acetaminophen 325 MG TAB PO SCH ×3 (06:38→18:41)
[2022-02-25] MEDS: Ibuprofen 200 MG TAB PO SCH ×3 (06:39→21:13)
[2022-02-25] MEDS: Hydrocortisone Sod Succ/PF 100 mg/2 ml Vial IVP SCH (06:39)
[2022-02-25] MEDS: Senokot S 8.6-50 MG TAB PO SCH ×2 (09:47→21:28)
[2022-02-25] MEDS: Ascorbic Acid 500 mg Chewable Tablet PO SCH (09:48)
[2022-02-25] MEDS: Famotidine 20 MG TAB PO SCH ×2 (09:48→21:24)
[2022-02-25] MEDS: Pregabalin 75 MG CAP PO SCH ×3 (09:49→21:24)
[2022-02-25] MEDS: Aspirin 81 mg Enteric Coated Tablet PO SCH ×2 (09:50→21:13)
[2022-02-25] MEDS: Ferrous Sulfate 325 MG TAB PO SCH (09:50)
[2022-02-25] MEDS: Polyethylene Glycol 3350 17 GM Packet PO SCH (09:51)
[2022-02-25] MEDS: Melatonin 3 MG TAB PO SCH (21:17)
[2022-02-26] MEDS: Acetaminophen 325 MG TAB PO SCH ×3 (00:20→12:26)
[2022-02-26] MEDS: Ibuprofen 200 MG TAB PO SCH ×2 (05:03→15:48)
[2022-02-26 05:29] VITALS: TEMP 97.8
[2022-02-26] MEDS: Pregabalin 75 MG CAP PO SCH (09:52)
[2022-02-26] MEDS: Senokot S 8.6-50 MG TAB PO SCH (09:52)
[2022-02-26] MEDS: Famotidine 20 MG TAB PO SCH (09:52)
[2022-02-26] MEDS: Aspirin 81 mg Enteric Coated Tablet PO SCH (09:53)
[2022-02-26] MEDS: Ascorbic Acid 500 mg Chewable Tablet PO SCH (09:53)
[2022-02-26] MEDS: Ferrous Sulfate 325 MG TAB PO SCH (09:53)
[2022-02-26] MEDS: Polyethylene Glycol 3350 17 GM Packet PO SCH (10:12)
[2022-02-26 12:49] VITALS: BP 131/71
== END 2022-02-26 16:30 | disposition home or self-care (01) | DRG 522 ==
LOC: SURG A 14:23
PROVIDERS: ADMIT Surgery; ATTEND Surgery
PROC: 0SRR0J9 Replacement of Right Hip Joint, Femoral Surface with Synthetic Substitute, Cemented, Open Approach (ICD-10-PCS; principal; 2022-02-22)
DX: S72.001A Fracture of unspecified part of neck of right femur, initial encounter for closed fracture (principal); G89.29 Other chronic pain; I10 Essential (primary) hypertension; M19.90 Unspecified osteoarthritis, unspecified site; M81.0 Age-related osteoporosis without current pathological fracture; F32.A Depression, unspecified; I95.9 Hypotension, unspecified; Z20.822 Contact with and (suspected) exposure to COVID-19; W19.XXXA Unspecified fall, initial encounter; K44.9 Diaphragmatic hernia without obstruction or gangrene; I08.0 Rheumatic disorders of both mitral and aortic valves; I37.1 Nonrheumatic pulmonary valve insufficiency; Z90.710 Acquired absence of both cervix and uterus; Z98.890 Other specified postprocedural states; Z86.711 Personal history of pulmonary embolism; Z88.5 Allergy status to narcotic agent; Y92.002 Bathroom of unspecified non-institutional (private) residence as the place of occurrence of the external cause; Z88.0 Allergy status to penicillin; Z88.8 Allergy status to other drugs, medicaments and biological substances
CPT/HCPCS: 36415; 72170; 80048; 81003; 82533; 83735; 83880; 84100; 84484; 85025; 93005; 93010; 93306; J1100; J1720; J1956; J2405; J2704; J3010; J3475; J3490; J7050; J7620; P9045; U0002

== ENCOUNTER 2022-03-14 14:07 | Inpatient (IN) | payer MEDICARE ==
[2022-03-14] MEDS ORDERED: Ketorolac Tromethamine 30 MG/ML VIAL ONE (14:28)
[2022-03-14 15:25] LABS: #Eosinphils 0.3 thou/uL (0.0-0.7); #Lymphocytes 2.2 thou/uL (1.20-3.40); #Monocytes 0.8 thou/uL (0.11-0.59); %Basophils 0.4 % (0.0-1.0); %Eosinophils 3.3 % (0.0-10.0); %Lymphocytes 26.1 % (21.0-51.0); %Neutrophils 60.2 % (42.0-75.0); Hemoglobin 11.4 g/dL (12.0-16.0); Mean Corpuscular HGB CONC 32.3 g/dL (32.0-36.0); Mean Corpuscular Hemoglobin 29.8 pg (27.0-31.0); Mean Corpuscular Volume 92.4 fL (78.0-98.0); Mean Platelet Volume 7.3 fL (7.4-10.4); Platelet Count 346 thou/uL (130-400); RBC Distribution Width 13.1 % (11.5-14.5); Red Blood Cell (RBC) Count 3.82 mill/uL (4.20-5.40); White Blood Cell (WBC) Count 8.4 thou/uL (4.8-10.8)
[2022-03-14 15:37] LABS: ALT (SGPT) 11 U/L (8-55); AST (SGOT) 21 U/L (5-34); Albumin 3.7 g/dL (3.4-4.8); Alkaline Phosphatase 117 U/L (40-110); Anion Gap 13 mmol/L (10-20); BUN (Urea Nitrogen) 22 mg/dL (9.8-20.1); Bilirubin, Total 0.3 mg/dL (0.2-1.2); Calc. Creatinine Clearance 0 mL/min (70-130); Calcium 8.7 mg/dL (7.8-10.44); Carbon Dioxide 21 mmol/L (23-31); Chloride 110 mmol/L (98-107); Estimated GFR 77; Glucose 94 mg/dL (83-110); Protein, Total 6.7 g/dL (5.8-8.1); Sodium 140 mmol/L (136-145)
[2022-03-14] MEDS ORDERED: Dextrose 50% Abboject 50 ML SYRINGE SLOW IVP PRN (17:21)
[2022-03-14] MEDS ORDERED: TETANUS, DIPHTHERIA TOX,ADULT (TDVAX) 0.5 ML VIAL IM ONE (17:21)
[2022-03-14] MEDS ORDERED: Dextrose 5% in Water 1,000 ML IV PRN (17:21)
[2022-03-14] MEDS ORDERED: Ondansetron PF 4 MG/2 ML Vial IVP PRN (17:21)
[2022-03-14] MEDS ORDERED: Morphine 4 MG/ML VIAL SLOW IVP PRN (17:32)
[2022-03-14] MEDS: Gabapentin 100 MG CAP PO SCH (21:08)
[2022-03-14] MEDS: Senokot S 8.6-50 MG TAB PO SCH (21:08)
[2022-03-14] MEDS: Famotidine 20 MG TAB PO SCH (21:08)
[2022-03-14] MEDS: Ketorolac Tromethamine 30 MG/ML VIAL IVP SCH ×2 (21:09→23:54)
[2022-03-14] MEDS: traMADol HCl 50 MG TAB PO PRN (21:09)
[2022-03-14] MEDS: Acetaminophen 500 MG TAB PO SCH ×2 (21:09→23:53)
[2022-03-14] MEDS: traMADol HCl 50 MG TAB PO SCH ×2 (21:12→23:54)
[2022-03-15 00:47] LABS: SARS-CoV-2 NAA Rapid Test Not Detected (NotDetected)
[2022-03-15 00:59] VITALS: BMI 22.5
[2022-03-15] MEDS: Acetaminophen 500 MG TAB PO SCH ×4 (06:43→23:47)
[2022-03-15] MEDS: Ketorolac Tromethamine 30 MG/ML VIAL IVP SCH ×3 (06:44→17:51)
[2022-03-15] MEDS: traMADol HCl 50 MG TAB PO SCH ×4 (06:45→23:47)
[2022-03-15] MEDS: Gabapentin 100 MG CAP PO SCH ×3 (09:34→20:34)
[2022-03-15] MEDS: Senokot S 8.6-50 MG TAB PO SCH ×2 (09:35→20:34)
[2022-03-15] MEDS: Famotidine 20 MG TAB PO SCH ×2 (09:35→20:34)
[2022-03-15] MEDS: Polyethylene Glycol 3350 17 GM Packet PO SCH (09:35)
[2022-03-15] MEDS: Aspirin 81 mg Enteric Coated Tablet PO SCH (20:33)
[2022-03-16] MEDS: traMADol HCl 50 MG TAB PO PRN (02:14)
[2022-03-16] MEDS: Acetaminophen 500 MG TAB PO SCH ×4 (05:41→23:28)
[2022-03-16] MEDS: traMADol HCl 50 MG TAB PO SCH ×4 (05:42→23:29)
[2022-03-16] MEDS: Ascorbic Acid 500 mg Chewable Tablet PO SCH (09:48)
[2022-03-16] MEDS: Senokot S 8.6-50 MG TAB PO SCH ×2 (09:48→20:43)
[2022-03-16] MEDS: Famotidine 20 MG TAB PO SCH ×2 (09:48→20:44)
[2022-03-16] MEDS: Pregabalin 75 MG CAP PO SCH ×2 (09:48→20:43)
[2022-03-16] MEDS: Aspirin 81 mg Enteric Coated Tablet PO SCH ×2 (09:49→20:44)
[2022-03-16] MEDS: Ferrous Sulfate 325 MG TAB PO SCH (09:49)
[2022-03-16] MEDS: Polyethylene Glycol 3350 17 GM Packet PO SCH (09:49)
[2022-03-16] MEDS: Gabapentin 100 MG CAP PO SCH (11:10)
[2022-03-16] MEDS: Melatonin 3 MG TAB PO SCH (20:44)
[2022-03-16] MEDS: Donepezil HCl 5 MG TAB PO SCH (20:44)
[2022-03-17] MEDS: Acetaminophen 500 MG TAB PO SCH ×4 (05:49→23:47)
[2022-03-17] MEDS: traMADol HCl 50 MG TAB PO SCH ×4 (05:49→23:47)
[2022-03-17] MEDS: Polyethylene Glycol 3350 17 GM Packet PO SCH (08:44)
[2022-03-17] MEDS: Pregabalin 75 MG CAP PO SCH ×2 (08:45→21:19)
[2022-03-17] MEDS: Senokot S 8.6-50 MG TAB PO SCH ×2 (08:46→21:18)
[2022-03-17] MEDS: Aspirin 81 mg Enteric Coated Tablet PO SCH ×2 (08:46→21:18)
[2022-03-17] MEDS: Ferrous Sulfate 325 MG TAB PO SCH (08:46)
[2022-03-17] MEDS: Ascorbic Acid 500 mg Chewable Tablet PO SCH (08:46)
[2022-03-17] MEDS: Famotidine 20 MG TAB PO SCH ×2 (08:46→21:18)
[2022-03-17] MEDS: Melatonin 3 MG TAB PO SCH (21:18)
[2022-03-17] MEDS: Donepezil HCl 5 MG TAB PO SCH (21:18)
[2022-03-18] MEDS: traMADol HCl 50 MG TAB PO SCH (06:19)
[2022-03-18] MEDS: Acetaminophen 500 MG TAB PO SCH (06:19)
[2022-03-18] MEDS: Polyethylene Glycol 3350 17 GM Packet PO SCH (08:28)
[2022-03-18] MEDS: Pregabalin 75 MG CAP PO SCH (08:28)
[2022-03-18] MEDS: Aspirin 81 mg Enteric Coated Tablet PO SCH ×2 (08:28→20:17)
[2022-03-18] MEDS: Ascorbic Acid 500 mg Chewable Tablet PO SCH (08:29)
[2022-03-18] MEDS: Famotidine 20 MG TAB PO SCH ×2 (08:29→20:17)
[2022-03-18] MEDS: Ferrous Sulfate 325 MG TAB PO SCH (08:29)
[2022-03-18] MEDS: Senokot S 8.6-50 MG TAB PO SCH ×2 (08:29→20:18)
[2022-03-18] MEDS ORDERED: Acetaminophen/Codeine 30-300mg Tablet PO PRN (10:38)
[2022-03-18] MEDS: Acetaminophen 325 MG TAB PO SCH ×2 (11:30→18:33)
[2022-03-18] MEDS: Ibuprofen 200 MG TAB PO SCH ×2 (11:30→18:34)
[2022-03-18] MEDS: Donepezil HCl 5 MG TAB PO SCH (20:17)
[2022-03-18] MEDS: Melatonin 3 MG TAB PO SCH (20:18)
[2022-03-18] MEDS ORDERED: Pregabalin 75 MG CAP PO SCH (21:00)
[2022-03-19] MEDS: Acetaminophen 325 MG TAB PO SCH ×3 (00:17→11:42)
[2022-03-19] MEDS: Ibuprofen 200 MG TAB PO SCH ×2 (02:24→10:59)
[2022-03-19] MEDS: Aspirin 81 mg Enteric Coated Tablet PO SCH (10:58)
[2022-03-19] MEDS: Senokot S 8.6-50 MG TAB PO SCH (10:58)
[2022-03-19] MEDS: Polyethylene Glycol 3350 17 GM Packet PO SCH (10:58)
[2022-03-19] MEDS: Famotidine 20 MG TAB PO SCH (10:58)
[2022-03-19] MEDS: Ascorbic Acid 500 mg Chewable Tablet PO SCH (10:59)
[2022-03-19] MEDS: Ferrous Sulfate 325 MG TAB PO SCH (10:59)
[2022-03-19] MEDS: Pregabalin 75 MG CAP PO SCH (10:59)
[2022-03-19 12:17] VITALS: BP 129/80; TEMP 97.8
== END 2022-03-19 12:43 | DRG 536 ==
LOC: ERS 14:07 → SURG B 16:42 → OBSVTOIN 03-15 17:48
PROVIDERS: ADMIT Surgery; ATTEND Surgery
DX: S72.111A Displaced fracture of greater trochanter of right femur, initial encounter for closed fracture (principal); W19.XXXA Unspecified fall, initial encounter; I10 Essential (primary) hypertension; F32.A Depression, unspecified; F41.9 Anxiety disorder, unspecified; G89.29 Other chronic pain; M81.0 Age-related osteoporosis without current pathological fracture; Z96.642 Presence of left artificial hip joint; Z90.710 Acquired absence of both cervix and uterus; Z86.711 Personal history of pulmonary embolism; Z98.890 Other specified postprocedural states; Z88.5 Allergy status to narcotic agent; Y92.9 Unspecified place or not applicable; Z88.8 Allergy status to other drugs, medicaments and biological substances; Z88.0 Allergy status to penicillin
CPT/HCPCS: 36415; 80053; 85025; 93970; 96374; 96376; G0378; J1885; U0002

== ENCOUNTER 2023-07-17 06:29 | Inpatient (IN) | payer MEDICARE ==
[2023-07-17 07:42] LABS: Bacteria/HPF 2+ HPF (None Seen); Bilirubin Negative (Negative); Blood, Urine Negative (Negative); CAUTI Indications for Culture Dysuria,urgency,freq; Clarity Clear (Clear); Glucose, Urine (Dipstick) Normal (Negative); Ketone, Urine Negative (Negative); Leukocyte Negative Leu/uL (Negative); Nitrite Negative (Negative); Protein, Urine (Dipstick) Negative (Neg-Trace); RBC/HPF 0-3 HPF (0-3); Specific Gravity, Urine 1.024 (1.002-1.036); Squamous Epithelial 0-3 HPF (0-3); Urobilinogen Normal mg/dL (Less than 2); WBC/HPF 0-3 HPF (0-3)
[2023-07-17 07:54] LABS: Urine Culture Reflex No No
[2023-07-17 08:31] LABS: #Monocytes 1.2 thou/uL (0.11-0.59); #Neutrophils 14.5 thou/uL (1.40-6.50); %Basophils 0.2 % (0.0-1.0); %Eosinophils 0.1 % (0.0-10.0); %Monocytes 6.9 % (0.0-10.0); Hematocrit 41.9 % (36.0-47.0); Hemoglobin 13.3 g/dL (12.0-16.0); Mean Corpuscular HGB CONC 31.7 g/dL (32.0-36.0); Mean Corpuscular Hemoglobin 29.4 pg (27.0-31.0); Mean Corpuscular Volume 92.5 fl (78.0-98.0); Mean Platelet Volume 10.3 fL (7.4-10.4); Platelet Count 176 10x3/uL (130-400); RBC Distribution Width 15.1 % (11.5-14.5); Red Blood Cell (RBC) Count 4.53 mill/uL (4.20-5.40); White Blood Cell (WBC) Count 17.7 10x3/uL (4.8-10.8)
[2023-07-17 08:55] LABS: ALT (SGPT) 17 U/L (8-55); AST (SGOT) 31 U/L (5-34); Albumin 4.1 g/dL (3.4-4.8); Alkaline Phosphatase 88 U/L (40-110); Anion Gap 15 mmol/L (10-20); BUN (Urea Nitrogen) 20 mg/dL (9.8-20.1); Bilirubin, Total 0.6 mg/dL (0.2-1.2); Calc. Creatinine Clearance 0 mL/min (70-130); Calcium 8.8 mg/dL (7.8-10.44); Carbon Dioxide 22 mmol/L (23-31); Chloride 110 mmol/L (98-107); Estimated GFR 74; Glucose 107 mg/dL (83-110); Magnesium 1.9 mg/dL (1.6-2.6); Potassium 4.1 mmol/L (3.5-5.1); Protein, Total 7.1 g/dL (5.8-8.1); Sodium 143 mmol/L (136-145)
[2023-07-17 08:59] LABS: Troponin I 0.012 ng/mL (< 0.028)
[2023-07-17] MEDS ORDERED: Ondansetron ODT 4 MG TAB PO PRN (10:11)
[2023-07-17] MEDS ORDERED: Ondansetron PF 4 MG/2 ML Vial IVP PRN (10:11)
[2023-07-17 10:45] LABS: SARS-CoV-2 NAA Rapid Test Not Detected (NotDetected)
[2023-07-17 11:30] LABS: Lactic Acid 1.1 mmol/L (0.5-2.2)
[2023-07-17 11:37] LABS: Troponin I 0.023 ng/mL (< 0.028)
[2023-07-17 11:43] VITALS: BMI 24.0
[2023-07-17] MEDS ORDERED: Iopamidol-370 76% 500 ML MDV (1 ML CHARGE) ONE (11:53)
[2023-07-17] MEDS: Sodium Chloride 0.9% 1,000 ML IV SCH ×2 (13:29→23:27)
[2023-07-17 14:25] LABS: Troponin I 0.015 ng/mL (< 0.028)
[2023-07-17] MEDS ORDERED: diphenhydrAMINE 25 MG CAP PO PRN (17:16)
[2023-07-17] MEDS ORDERED: Morphine 4 MG/ML VIAL SLOW IVP PRN (17:53)
[2023-07-17] MEDS ORDERED: Vancomycin (BATCH) 1.5 GM in Premix 1 BAG IVPB SCH (18:00)
[2023-07-17] MEDS: traMADol HCl 50 MG TAB PO PRN (18:36)
[2023-07-17] MEDS ORDERED: Aspirin 81 mg Enteric Coated Tablet PO SCH (21:00)
[2023-07-17] MEDS ORDERED: traMADol HCl 50 MG TAB PO SCH (21:00)
[2023-07-17] MEDS: Famotidine 20 MG TAB PO SCH (23:27)
[2023-07-17] MEDS: Senokot S 8.6-50 MG TAB PO SCH (23:27)
[2023-07-17] MEDS: Donepezil HCl 5 MG TAB PO SCH (23:27)
[2023-07-17] MEDS: Pregabalin 75 MG CAP PO SCH (23:28)
[2023-07-17] MEDS: Cefepime 1 GM in Sodium Chloride 0.9% 100 ML IVPB SCH (23:37)
[2023-07-18 05:49] LABS: #Basophils 0.1 thou/uL (0.0-0.2); #Eosinphils 0.4 thou/uL (0.0-0.7); #Neutrophils 9.7 thou/uL (1.40-6.50); %Basophils 0.6 % (0.0-1.0); %Lymphocytes 11.6 % (21.0-51.0); %Monocytes 7.5 % (0.0-10.0); %Neutrophils 76.7 % (42.0-75.0); Hematocrit 39.9 % (36.0-47.0); Hemoglobin 12.5 g/dL (12.0-16.0); Mean Corpuscular HGB CONC 31.3 g/dL (32.0-36.0); Mean Corpuscular Hemoglobin 29.6 pg (27.0-31.0); Mean Corpuscular Volume 94.3 fl (78.0-98.0); Mean Platelet Volume 10.9 fL (7.4-10.4); Platelet Count 134 10x3/uL (130-400); RBC Distribution Width 15.3 % (11.5-14.5); Red Blood Cell (RBC) Count 4.23 mill/uL (4.20-5.40); White Blood Cell (WBC) Count 12.6 10x3/uL (4.8-10.8)
[2023-07-18 06:03] LABS: Anion Gap 9 mmol/L (10-20); BUN (Urea Nitrogen) 10 mg/dL (9.8-20.1); Calc. Creatinine Clearance 64 mL/min (70-130); Carbon Dioxide 19 mmol/L (23-31); Chloride 113 mmol/L (98-107); Estimated GFR 86; Glucose 83 mg/dL (83-110); Potassium 3.5 mmol/L (3.5-5.1); Sodium 137 mmol/L (136-145)
[2023-07-18] MEDS ORDERED: Amlodipine 5 MG TAB PO SCH (09:00)
[2023-07-18] MEDS: Magnesium Oxide 250 MG TAB PO SCH (09:14)
[2023-07-18] MEDS: Sertraline 100 MG TAB PO SCH (09:15)
[2023-07-18] MEDS: Famotidine 20 MG TAB PO SCH ×2 (09:15→21:26)
[2023-07-18] MEDS: Memantine 10 MG TAB PO SCH (09:15)
[2023-07-18] MEDS: Senokot S 8.6-50 MG TAB PO SCH ×2 (09:15→21:26)
[2023-07-18] MEDS: Cefepime 1 GM in Sodium Chloride 0.9% 100 ML IVPB SCH ×2 (09:15→23:55)
[2023-07-18] MEDS: Cholecalciferol 1,000 UNITS (25 MCG) TAB PO SCH (09:15)
[2023-07-18] MEDS: Multivitamin W/ Minerals 1 TAB PO SCH (09:15)
[2023-07-18] MEDS: Aspirin 81 mg Enteric Coated Tablet PO SCH (09:16)
[2023-07-18] MEDS: traMADol HCl 50 MG TAB PO PRN (10:38)
[2023-07-18] MEDS ORDERED: Vancomycin 1 GM in Premix 1 BAG IVPB SCH (18:00)
[2023-07-18] MEDS: Pregabalin 75 MG CAP PO SCH (21:25)
[2023-07-18] MEDS: Donepezil HCl 5 MG TAB PO SCH (21:26)
[2023-07-18] MEDS: Acetaminophen 325 MG TAB PO PRN (21:42)
[2023-07-19 06:04] LABS: Anion Gap 11 mmol/L (10-20); BUN (Urea Nitrogen) 8 mg/dL (9.8-20.1); Calc. Creatinine Clearance 71 mL/min (70-130); Calcium 8.2 mg/dL (7.8-10.44); Carbon Dioxide 20 mmol/L (23-31); Chloride 113 mmol/L (98-107); Estimated GFR 88; Glucose 83 mg/dL (83-110); Potassium 3.4 mmol/L (3.5-5.1); Sodium 141 mmol/L (136-145)
[2023-07-19 09:33] LABS: %Eosinophils 5.6 % (0.0-10.0); %Lymphocytes 12.8 % (21.0-51.0); %Monocytes 8.9 % (0.0-10.0); %Neutrophils 71.6 % (42.0-75.0); Hemoglobin 12.3 g/dL (12.0-16.0); Mean Corpuscular HGB CONC 32.4 g/dL (32.0-36.0); Mean Corpuscular Hemoglobin 28.9 pg (27.0-31.0); Mean Corpuscular Volume 89.4 fl (78.0-98.0); Mean Platelet Volume 10.6 fL (7.4-10.4); Platelet Count 131 10x3/uL (130-400); Red Blood Cell (RBC) Count 4.25 mill/uL (4.20-5.40); White Blood Cell (WBC) Count 11.4 10x3/uL (4.8-10.8)
[2023-07-19 09:34] LABS: #Basophils 0.1 thou/uL (0.0-0.2); #Eosinphils 0.6 thou/uL (0.0-0.7); #Neutrophils 8.1 thou/uL (1.40-6.50); %Basophils 0.6 % (0.0-1.0)
[2023-07-19] MEDS: traMADol HCl 50 MG TAB PO PRN ×2 (10:38→20:20)
[2023-07-19] MEDS: Cholecalciferol 1,000 UNITS (25 MCG) TAB PO SCH (10:39)
[2023-07-19] MEDS: Multivitamin W/ Minerals 1 TAB PO SCH (10:39)
[2023-07-19] MEDS: Magnesium Oxide 250 MG TAB PO SCH (10:39)
[2023-07-19] MEDS: Famotidine 20 MG TAB PO SCH ×2 (10:39→20:14)
[2023-07-19] MEDS: Sertraline 100 MG TAB PO SCH (10:39)
[2023-07-19] MEDS: Memantine 10 MG TAB PO SCH (10:40)
[2023-07-19] MEDS: Aspirin 81 mg Enteric Coated Tablet PO SCH (10:40)
[2023-07-19] MEDS: Cefepime 1 GM in Sodium Chloride 0.9% 100 ML IVPB SCH ×2 (10:41→20:15)
[2023-07-19] MEDS: Senokot S 8.6-50 MG TAB PO SCH ×3 (10:54→21:25)
[2023-07-19] MEDS: Potassium Chloride 20 MEQ in Premix 1 BAG IVPB SCH ×2 (11:53→17:55)
[2023-07-19] MEDS ORDERED: Polyethylene Glycol 3350 17 GM Packet PO PRN (12:36)
[2023-07-19] MEDS ORDERED: Vancomycin 1 GM in Premix 1 BAG IVPB SCH (16:45)
[2023-07-19 18:52] LABS: Vancomycin, Trough 7.1 ug/mL
[2023-07-19] MEDS ORDERED: Vancomycin HCl 750 MG in Sodium Chloride 0.9% 250 ML 250 ML IVPB SCH (20:00)
[2023-07-19] MEDS: Pregabalin 75 MG CAP PO SCH (20:12)
[2023-07-19] MEDS: Donepezil HCl 5 MG TAB PO SCH (20:14)
[2023-07-19] MEDS: Melatonin 3 MG TAB PO PRN (20:24)
[2023-07-20 04:39] LABS: #Basophils 0.1 thou/uL (0.0-0.2); #Eosinphils 0.5 thou/uL (0.0-0.7); #Neutrophils 6.9 thou/uL (1.40-6.50); %Basophils 0.7 % (0.0-1.0); %Eosinophils 4.8 % (0.0-10.0); %Lymphocytes 19.8 % (21.0-51.0); %Monocytes 9.4 % (0.0-10.0); %Neutrophils 64.7 % (42.0-75.0); Hematocrit 34.7 % (36.0-47.0); Hemoglobin 11.3 g/dL (12.0-16.0); Mean Corpuscular HGB CONC 32.6 g/dL (32.0-36.0); Mean Platelet Volume 11.1 fL (7.4-10.4); Platelet Count 138 10x3/uL (130-400); RBC Distribution Width 14.8 % (11.5-14.5); White Blood Cell (WBC) Count 10.6 10x3/uL (4.8-10.8)
[2023-07-20 05:04] LABS: Anion Gap 11 mmol/L (10-20); BUN (Urea Nitrogen) 10 mg/dL (9.8-20.1); Calc. Creatinine Clearance 66 mL/min (70-130); Carbon Dioxide 23 mmol/L (23-31); Chloride 110 mmol/L (98-107); Estimated GFR 87; Glucose 85 mg/dL (83-110); Potassium 3.6 mmol/L (3.5-5.1); Sodium 140 mmol/L (136-145)
[2023-07-20] MEDS ORDERED: cefTRIAXone\\ROCEPHIN 1 GM in Sodium Chloride 0.9% 100 ML IVPB SCH (09:00)
[2023-07-20] MEDS: Magnesium Oxide 250 MG TAB PO SCH (10:02)
[2023-07-20] MEDS: Amlodipine 5 MG TAB PO SCH (10:03)
[2023-07-20] MEDS: Cholecalciferol 1,000 UNITS (25 MCG) TAB PO SCH (10:03)
[2023-07-20] MEDS: Famotidine 20 MG TAB PO SCH ×2 (10:03→21:43)
[2023-07-20] MEDS: Memantine 10 MG TAB PO SCH (10:03)
[2023-07-20] MEDS: Sertraline 100 MG TAB PO SCH (10:03)
[2023-07-20] MEDS: Aspirin 81 mg Enteric Coated Tablet PO SCH (10:11)
[2023-07-20] MEDS: Multivitamin W/ Minerals 1 TAB PO SCH (11:00)
[2023-07-20] MEDS: Senokot S 8.6-50 MG TAB PO SCH ×2 (11:00→21:49)
[2023-07-20] MEDS: traMADol HCl 50 MG TAB PO PRN (12:18)
[2023-07-20] MEDS: Acetaminophen 325 MG TAB PO PRN (12:18)
[2023-07-20] MEDS ORDERED: LevoFLOXacin 750 MG TAB PO SCH (13:15)
[2023-07-20] MEDS ORDERED: Enoxaparin 30 MG (0.3 mL) SYRINGE SC SCH (21:00)
[2023-07-20] MEDS: Pregabalin 75 MG CAP PO SCH (21:41)
[2023-07-20] MEDS: Melatonin 3 MG TAB PO PRN (21:43)
[2023-07-20] MEDS: Donepezil HCl 5 MG TAB PO SCH (21:44)
[2023-07-21] MEDS: LevoFLOXacin 750 MG TAB PO SCH (06:25)
[2023-07-21] MEDS: Famotidine 20 MG TAB PO SCH ×2 (08:59→20:19)
[2023-07-21] MEDS: Amlodipine 5 MG TAB PO SCH (08:59)
[2023-07-21] MEDS: Magnesium Oxide 250 MG TAB PO SCH (08:59)
[2023-07-21] MEDS: Memantine 10 MG TAB PO SCH (08:59)
[2023-07-21] MEDS: Aspirin 81 mg Enteric Coated Tablet PO SCH (08:59)
[2023-07-21] MEDS: Cholecalciferol 1,000 UNITS (25 MCG) TAB PO SCH (08:59)
[2023-07-21] MEDS: Sertraline 100 MG TAB PO SCH (09:00)
[2023-07-21] MEDS: Senokot S 8.6-50 MG TAB PO SCH ×2 (09:00→20:19)
[2023-07-21] MEDS: Multivitamin W/ Minerals 1 TAB PO SCH (11:54)
[2023-07-21] MEDS ORDERED: traZODone HCl 50 MG TAB PO PRN (12:12)
[2023-07-21] MEDS: traMADol HCl 50 MG TAB PO PRN (16:17)
[2023-07-21] MEDS: Melatonin 3 MG TAB PO PRN (20:16)
[2023-07-21] MEDS: Pregabalin 75 MG CAP PO SCH (20:19)
[2023-07-21] MEDS ORDERED: Enoxaparin 40 MG (0.4 mL) SYRINGE SC SCH (21:00)
[2023-07-22] MEDS: LevoFLOXacin 750 MG TAB PO SCH (05:52)
[2023-07-22] MEDS: Magnesium Oxide 250 MG TAB PO SCH (09:13)
[2023-07-22] MEDS: Senokot S 8.6-50 MG TAB PO SCH (09:13)
[2023-07-22] MEDS: Amlodipine 5 MG TAB PO SCH (09:13)
[2023-07-22] MEDS: Famotidine 20 MG TAB PO SCH (09:14)
[2023-07-22] MEDS: Sertraline 100 MG TAB PO SCH (09:15)
[2023-07-22] MEDS: Memantine 10 MG TAB PO SCH (09:15)
[2023-07-22] MEDS: Aspirin 81 mg Enteric Coated Tablet PO SCH (09:15)
[2023-07-22] MEDS: Cholecalciferol 1,000 UNITS (25 MCG) TAB PO SCH (09:16)
[2023-07-22] MEDS: Multivitamin W/ Minerals 1 TAB PO SCH (09:36)
[2023-07-22 11:25] VITALS: BP 118/76; TEMP 98.7
[2023-07-22] MEDS: traMADol HCl 50 MG TAB PO PRN (11:51)
== END 2023-07-22 12:45 | DRG 551 ==
LOC: ERS 06:29 → ERHOLD 10:08 → 2NO 15:12 → OBSVTOIN 07-19 07:56 → SJJU 07-19 17:12
PROVIDERS: ADMIT Internal Medicine; ATTEND Family Medicine
DX: S32.19XA Other fracture of sacrum, initial encounter for closed fracture (principal); S32.492A Other specified fracture of left acetabulum, initial encounter for closed fracture; S32.592A Other specified fracture of left pubis, initial encounter for closed fracture; S32.591A Other specified fracture of right pubis, initial encounter for closed fracture; M54.50 Low back pain, unspecified; I10 Essential (primary) hypertension; F03.90 Unspecified dementia, unspecified severity, without behavioral disturbance, psychotic disturbance, mood disturbance, and anxiety; M19.90 Unspecified osteoarthritis, unspecified site; G89.29 Other chronic pain; Z90.710 Acquired absence of both cervix and uterus; Z98.890 Other specified postprocedural states; Z79.82 Long term (current) use of aspirin; Z79.899 Other long term (current) drug therapy; Z88.0 Allergy status to penicillin; Z88.8 Allergy status to other drugs, medicaments and biological substances; W18.30XA Fall on same level, unspecified, initial encounter; E87.6 Hypokalemia; M41.9 Scoliosis, unspecified; Z11.52 Encounter for screening for COVID-19
CPT/HCPCS: 36415; 70450; 71045; 71275; 72125; 72170; 72192; 80048; 80053; 80202; 81001; 82550; 83605; 83735; 83880; 84145; 84443; 84484; 85025; 87040; 93005; 93306; 96360; 96361; 96374; 96375; 96376; G0378; J0692; J0696; J1650; J3370; J3370-JW; J3480; J3490; J7050; Q9967

== ENCOUNTER 2023-12-02 02:06 | Emergency (ER) | payer MEDICARE ==
[2023-12-02] MEDS ORDERED: fentaNYL 50 mcg/mL 1 mL Vial ONE (02:30)
[2023-12-02] MEDS ORDERED: Acetaminophen 325 MG TAB ONE (02:30)
== END 2023-12-02 06:27 ==
LOC: ERS 02:06
DX: S42.001A Fracture of unspecified part of right clavicle, initial encounter for closed fracture (principal); S09.90XA Unspecified injury of head, initial encounter; I10 Essential (primary) hypertension; W06.XXXA Fall from bed, initial encounter
CPT/HCPCS: 70450; 72125; 73030; J3010; 96374

== ENCOUNTER 2024-03-10 10:40 | Emergency (ER) | payer MEDICARE, OTHER | END 2024-03-10 20:48 | LOC: ERS 10:40 | DX: S42.021A Displaced fracture of shaft of right clavicle, initial encounter for closed fracture (principal); I11.0 Hypertensive heart disease with heart failure; I50.9 Heart failure, unspecified; K21.9 Gastro-esophageal reflux disease without esophagitis; Z79.899 Other long term (current) drug therapy; Z96.643 Presence of artificial hip joint, bilateral; W06.XXXA Fall from bed, initial encounter; Y92.129 Unspecified place in nursing home as the place of occurrence of the external cause | CPT/HCPCS: 70450; 72125; 93005 ==

== ENCOUNTER 2024-05-30 20:20 | Inpatient (IN) | payer MEDICARE, OTHER ==
[~2024-05-30 20:20] MED LIST changes: -Dexamethasone 20 MG/5 ML VIAL ONE; -Glycopyrrolate 0.2 MG/ML 5 ML SYRINGE ONE; +Iopamidol-370 76% 500 ML MDV (1 ML CHARGE) ONE; -Ketorolac Tromethamine 30 MG/ML VIAL ONE; -Lidocaine 1% PF 5 ML VIAL ONE; -Ondansetron PF 4 MG/2 ML Vial ONE; -PROPOFOL 200 MG/20 ML VIAL ONE; -Rocuronium Bromide 10 MG/ML (10ML VIAL) ONE; -ePHEDrine 50 MG/ML VIAL ONE
[2024-05-30] MEDS ORDERED: Albuterol 2.5 MG (3 mL) NEB ONE (20:37)
[2024-05-30] MEDS ORDERED: Ipratropium/Albuterol 3 ML NEB ONE (20:37)
[2024-05-30] MEDS ORDERED: Nitroglycerin 2% Ointment 1 INCH/1 GM Packet ONE (20:38)
[2024-05-30] MEDS ORDERED: methylPREDNISolone Sod Succ/PF 125 MG/2 ML VIAL ONE (20:39)
[2024-05-30 21:07] LABS: Hematocrit 43.6 % (36.0-47.0); Hemoglobin 13.6 g/dL (12.0-16.0); Mean Corpuscular HGB CONC 31.2 g/dL (32.0-36.0); Mean Corpuscular Hemoglobin 27.9 pg (27.0-31.0); Mean Corpuscular Volume 89.3 fL (78.0-98.0); Mean Platelet Volume 10.3 fL (7.4-10.4); Platelet Count 277 10x3/uL (130-400); RBC Distribution Width 15.1 % (11.5-14.5); Red Blood Cell (RBC) Count 4.88 mill/uL (4.20-5.40)
[2024-05-30 21:24] LABS: ALT (SGPT) 13 U/L (8-55); AST (SGOT) 32 U/L (5-34); Albumin 3.9 g/dL (3.4-4.8); Alkaline Phosphatase 107 U/L (40-110); Anion Gap 19 mmol/L (10-20); BUN (Urea Nitrogen) 22 mg/dL (9.8-20.1); Bilirubin, Total 0.3 mg/dL (0.2-1.2); Calc. Creatinine Clearance 0 mL/min (70-130); Calcium 8.8 mg/dL (7.8-10.44); Carbon Dioxide 16 mmol/L (23-31); Chloride 108 mmol/L (98-107); Estimated GFR 67; Globulin 3.8 g/dL (2.4-3.5); Glucose 208 mg/dL (83-110); Protein, Total 7.7 g/dL (5.8-8.1); Sodium 139 mmol/L (136-145)
[2024-05-30 21:25] LABS: Troponin I Less than 0.010 ng/mL (< 0.028)
[2024-05-30 21:31] LABS: Actual Bicarbonate (HCO3a) 22.3 mEq/L (22-28); Analyzer IN Cardio ER; Base Excess (BEa) -4.5 mEq/L (-2.0 to +3.0); CO2 Tension 47.8 mmHg (35.0-45.0); Calcium, Ionized (arterial) 1.15 mmol/L (1.12-1.30); Carboxyhemoglobin (COHb) 0.8 gm% (0.0-3.0); Hematocrit-ABG 39 % (36.0-47.0); Hemoglobin (Hb) 13.4 g/dL (12.0-16.0); O2 Tension (PaO2), arterial 130.8 mmHg (> 60.0); Potassium - ABG Lab 3.78 mmol/L (3.70-5.30); pH, Arterial 7.286 (7.35-7.45)
[2024-05-30 21:33] LABS: Band 2 % (5-11); Burr Cells SLIGHT = 2-5 cells HPF (0-1); Elliptocytes SLIGHT = 2-5 cells HPF (0-1); Eosinophils 1 % (0-10); Large Platelets 1.9 % (0-5); Lymphocytes 38 % (21-51); Metamyelocyte 2 % (0-0); Monocytes 4 % (0-10); Neutrophil 53 % (42-75); Platelet Adequacy Comment Platelets Normal
[2024-05-30] MEDS ORDERED: Magnesium 2 GM/50 ML BAG (IN WATER) ONE (22:15)
[2024-05-30] MEDS ORDERED: Cefepime 2 GM VIAL ONE (22:45)
[2024-05-30] MEDS ORDERED: Sodium Chloride 0.9% 100 ML ONE (22:45)
[2024-05-30] MEDS ORDERED: Vancomycin 1 GM/200 ML (FROZEN) BAG ONE (23:35)
[2024-05-30] MEDS ORDERED: Ondansetron ODT 4 MG TAB SL PRN (23:45)
[2024-05-30] MEDS ORDERED: Ondansetron PF 4 MG/2 ML Vial IVP PRN (23:45)
[2024-05-30] MEDS ORDERED: Acetaminophen 325 MG TAB PO PRN (23:45)
[2024-05-30 23:49] LABS: Bacteria/HPF None Seen HPF (None Seen); Bilirubin Negative (Negative); Blood, Urine Negative (Negative); CAUTI Indications for Culture Alt mental st,lethar; Clarity Clear (Clear); Glucose, Urine (Dipstick) Normal (Negative); Ketone, Urine Negative (Negative); Leukocyte Negative Leu/uL (Negative); Nitrite Negative (Negative); Protein, Urine (Dipstick) 50 mg/dL (Neg-Trace); Specific Gravity, Urine 1.026 (1.002-1.036); Squamous Epithelial 0-3 HPF (0-3); Urobilinogen Normal mg/dL (Less than 2); WBC/HPF 0-3 HPF (0-3)
[2024-05-30 23:50] LABS: Urine Culture Reflex No No
[2024-05-30] MEDS ORDERED: Ipratropium/Albuterol 3 ML NEB NEB PRN (23:57)
[2024-05-31 01:04] LABS: Troponin I 0.341 ng/mL (< 0.028)
[2024-05-31] MEDS: Magnesium 2 GM/50 ML(in water) 2 GM in Premix 1 BAG IVPB SCH (01:26)
[2024-05-31] MEDS: Sodium Chloride 0.9% 1,000 ML IV SCH (01:39)
[2024-05-31] MEDS: Lactated Ringer's 500 ML IV SCH (02:19)
[2024-05-31] MEDS ORDERED: Ondansetron PF 4 MG/2 ML Vial IVP PRN ×2 (02:27→10:45)
[2024-05-31] MEDS ORDERED: Ondansetron ODT 4 MG TAB PO PRN (02:27)
[2024-05-31] MEDS ORDERED: Acetaminophen 650 MG Suppository PR PRN (02:27)
[2024-05-31] MEDS ORDERED: Ipratropium/Albuterol 3 ML NEB NEB PRN ×2 (02:29→10:45)
[2024-05-31] MEDS ORDERED: Aspirin 300 MG Suppository ONE (02:58)
[2024-05-31] MEDS: Aspirin 300 MG Suppository PR SCH (03:06)
[2024-05-31] MEDS ORDERED: NOREPINEPHRINE 8 MG/250 ML-D5W 250 ML IVPB SCH (03:45)
[2024-05-31 04:11] LABS: #Basophils 0.03 10x3/uL (0.0-0.2); #Eosinophils Less than 0.03 10x3/uL (0.0-0.7); %Basophils 0.2 % (0.0-1.0); %Eosinophils 0.1 % (0.0-10.0); %Lymphocytes 11.4 % (21.0-51.0); %Monocytes 9.1 % (0.0-10.0); %Neutrophils 78.8 % (42.0-75.0); Hemoglobin 11.7 g/dL (12.0-16.0); Mean Corpuscular HGB CONC 32.5 g/dL (32.0-36.0); Mean Corpuscular Hemoglobin 28.1 pg (27.0-31.0); Mean Corpuscular Volume 86.5 fL (78.0-98.0); Mean Platelet Volume 10.2 fL (7.4-10.4); Platelet Count 204 10x3/uL (130-400); RBC Distribution Width 15.1 % (11.5-14.5); Red Blood Cell (RBC) Count 4.16 mill/uL (4.20-5.40)
[2024-05-31 04:17] VITALS: BMI 27.1
[2024-05-31 04:51] LABS: Anion Gap 15 mmol/L (10-20); BUN (Urea Nitrogen) 19 mg/dL (9.8-20.1); Calc. Creatinine Clearance 60 mL/min (70-130); Calcium 8.2 mg/dL (7.8-10.44); Carbon Dioxide 18 mmol/L (23-31); Chloride 111 mmol/L (98-107); Estimated GFR 83; Glucose 107 mg/dL (83-110); Potassium 4.7 mmol/L (3.5-5.1); Sodium 139 mmol/L (136-145)
[2024-05-31 04:54] LABS: Troponin I 0.683 ng/mL (< 0.028)
[2024-05-31] MEDS: Acetaminophen 325 MG TAB PO SCH (05:04)
[2024-05-31 06:14] VITALS: TEMP 99.1
[2024-05-31 08:31] LABS: Critical Call Chem Troponin I RESULT DECREASING; Troponin I 0.449 ng/mL (< 0.028)
[2024-05-31 09:10] VITALS: BP 120/84
[2024-05-31] MEDS ORDERED: Lorazepam 2 MG/ML VIAL ONE (09:12)
[2024-05-31] MEDS ORDERED: Morphine 4 MG/ML VIAL ONE (09:12)
[2024-05-31] MEDS: Lorazepam 2 MG/ML VIAL SLOW IVP PRN (09:17)
[2024-05-31] MEDS: Morphine 4 MG/ML VIAL SLOW IVP PRN (09:17)
[2024-05-31] MEDS ORDERED: Acetaminophen 325 MG TAB PO PRN (10:45)
[2024-05-31] MEDS ORDERED: Sodium Chloride 0.9% 1,000 ML IV SCH (10:45)
[2024-05-31] MEDS ORDERED: Ondansetron ODT 4 MG TAB SL PRN (10:45)
[2024-05-31] MEDS ORDERED: Cefepime 2 GM in Sodium Chloride 0.9% 100 ML IVPB SCH (11:00)
== END 2024-05-31 12:34 | disposition hospice, inpatient (51) | DRG 280 ==
LOC: ERS 20:20 → ERHOLD 05-31 → T4-B 05-31 10:03
PROVIDERS: ADMIT Student in an Organized Health Care Education/Training Program; ATTEND Student in an Organized Health Care Education/Training Program
DX: I11.0 Hypertensive heart disease with heart failure (principal); I50.33 Acute on chronic diastolic (congestive) heart failure; I21.4 Non-ST elevation (NSTEMI) myocardial infarction; Z66 Do not resuscitate; F03.90 Unspecified dementia, unspecified severity, without behavioral disturbance, psychotic disturbance, mood disturbance, and anxiety; K21.9 Gastro-esophageal reflux disease without esophagitis; K59.00 Constipation, unspecified; Z90.710 Acquired absence of both cervix and uterus; Z88.0 Allergy status to penicillin
CPT/HCPCS: 36415; 51702; 71045; 71275; 80048; 80053; 81001; 82805; 83605; 83880; 84484; 85025; 87040; 87086; 93005; 94644; 94660; 94760; 96361; 96365; 96367; 96375; J0692; J2060; J2272; J2919; J3370; J3475; J7030; J7120; J7611; J7620; Q9967